=== PATIENT | female | born 1950 | race Caucasian/White ===

== ENCOUNTER → 2017-05-09 | Outpatient (CLI) | payer MEDICARE ==
[2017-05-09 16:34] LABS: ALBUMIN 4.3 GM/DL (3.2-5.2); ALBUMIN/GLOBULIN RATIO 1.26 (1.00-1.93); ALKALINE PHOSPHATASE 74 U/L (45-117); ALT/SGPT 16 U/L (12-78); AST/SGOT 11 U/L (7-37); BILIRUBIN,DIRECT < 0.1 MG/DL (0.0-0.2); BILIRUBIN,TOTAL 0.3 MG/DL (0.2-1.0); TOTAL PROTEIN 7.7 GM/DL (6.4-8.2)
== END ==
LOC: M WUC 11:30
PROVIDERS: ATTEND Internal Medicine Gastroenterology
DX: Z76.89 Persons encountering health services in other specified circumstances (principal); L50.8 Other urticaria; Z12.11 Encounter for screening for malignant neoplasm of colon

== ENCOUNTER → 2018-03-23 | Outpatient (REF) | payer MEDICARE ==
[2018-03-27 15:09] LABS: O+P EXAM Final report (.)
== END ==
LOC: M LAB REF 13:48
DX: R19.7 Diarrhea, unspecified (principal)
CPT/HCPCS: 87177

== ENCOUNTER → 2018-04-16 | Outpatient (CLI) | payer MEDICARE ==
[2018-04-16 18:12] LABS: C REACTIVE PROTEIN QUANTITATIV 1.87 MG/DL (0.00-0.30)
[2018-04-16 18:13] LABS: HEMATOCRIT 43.3 % (36.0-47.0); HEMOGLOBIN 13.7 g/dl (12.0-15.5); MEAN CORPUSCULAR HEMOGLOBIN 29.2 pg (27.0-33.0); MEAN CORPUSCULAR HGB CONC 31.6 g/dl (32.0-36.5); MEAN CORPUSCULAR VOLUME 92.3 fl (80.0-96.0); PLATELET COUNT, AUTOMATED 256 10^3/uL (150-450); RED BLOOD COUNT 4.69 10^6/uL (4.00-5.40); RED CELL DISTRIBUTION WIDTH 13.4 % (11.5-14.5); WHITE BLOOD COUNT 6.5 10^3/uL (4.0-10.0)
== END ==
LOC: M WUC 12:09
DX: K57.90 Diverticulosis of intestine, part unspecified, without perforation or abscess without bleeding (principal); R10.32 Left lower quadrant pain; K58.9 Irritable bowel syndrome, unspecified; Z12.11 Encounter for screening for malignant neoplasm of colon; R11.0 Nausea
CPT/HCPCS: 86140

== ENCOUNTER 2018-05-02 18:35 | Inpatient (IN) | payer MEDICARE ==
[2018-05-02 19:41] LABS: BASO % 0.3 % (0.0-1.0); EOS # 0.1 10^3/uL (0.0-0.50); EOS % 0.5 % (0.0-3.0); HEMOGLOBIN 14.9 g/dl (12.0-15.5); IMMATURE GRANULOCYTE % 0.3 % (0-3.0); LYMPH # 1.4 10^3/uL (1.5-4.5); LYMPH % 11.5 % (24.0-44.0); MEAN CORPUSCULAR HEMOGLOBIN 28.9 pg (27.0-33.0); MEAN CORPUSCULAR HGB CONC 32.4 g/dl (32.0-36.5); MEAN CORPUSCULAR VOLUME 89.3 fl (80.0-96.0); MONO # 0.5 10^3/uL (0.0-0.8); MONO % 4.5 % (0.0-5.0); NEUTROPHILS % 82.9 % (36.0-66.0); PLATELET COUNT, AUTOMATED 246 10^3/uL (150-450); RED BLOOD COUNT 5.15 10^6/uL (4.00-5.40); RED CELL DISTRIBUTION WIDTH 13.5 % (11.5-14.5)
[2018-05-02] MEDS: ONDANSETRON 4MG/2ML VIAL (J2405) IV (19:45)
[2018-05-02] MEDS: NS 1,000 ML IV (19:45)
[2018-05-02 19:57] LABS: ALBUMIN 4.5 GM/DL (3.2-5.2); ALBUMIN/GLOBULIN RATIO 1.25 (1.00-1.93); ALKALINE PHOSPHATASE 75 U/L (45-117); ALT/SGPT 17 U/L (12-78); ANION GAP 13 MEQ/L (8-16); AST/SGOT 19 U/L (7-37); BILIRUBIN,DIRECT 0.1 MG/DL (0.0-0.2); BILIRUBIN,TOTAL 0.5 MG/DL (0.2-1.0); BLOOD UREA NITROGEN 16 MG/DL (7-18); CALCIUM LEVEL 9.4 MG/DL (8.8-10.2); CARBON DIOXIDE LEVEL 25 MEQ/L (21-32); CHLORIDE LEVEL 100 MEQ/L (98-107); CK-MB VALUE MASS < 1.0 NG/ML (<3.6); CPK CREATINE PHOSPHOKINASE 104 U/L (26-192); CREATININE FOR GFR 1.22 MG/DL (0.55-1.30); GLOMERULAR FILTRATION RATE 46.4 (>39); GLUCOSE, FASTING 101 MG/DL (70-100); LIPASE 70 U/L (73-393); MB/CK RELATIVE INDEX 0.96 (< OR =4); POTASSIUM SERUM 4.4 MEQ/L (3.5-5.1); SODIUM LEVEL 138 MEQ/L (136-145); TOTAL PROTEIN 8.1 GM/DL (6.4-8.2); TROPONIN I < 0.02 NG/ML (< 0.10)
[2018-05-02] MEDS: MORPHINE 4 MG/ML 1ML VIAL/SYRINGE (J2270) IV (20:03)
[2018-05-02] MEDS: GASTROGRAFIN SOLUTION 30ML PO ×2 (20:20→20:44)
[2018-05-02] MEDS: MORPHINE 2 MG/ML 1ML SYRINGE (J2270) IV (21:36)
[2018-05-02] MEDS ORDERED: ISOVUE-370 76% 100ML VIAL (Q9967) As Ordered (21:41)
[2018-05-02 22:56] LABS: KETONE, URINE AUTO RFX 2+ mg/dL (NEGATIVE); LEUKOCYTE ESTERASE UR AUTO RFX NEGATIVE (NEGATIVE); MUCUS, URINE RFX SMALL (NEGATIVE); NITRITE, URINE AUTO RFX NEGATIVE (NEGATIVE); RBC, URINE AUTO RFX 4 /HPF (0-3); SPECIFIC GRAVITY UR AUTO RFX 1.046 (1.002-1.035); SQUAM EPITHELIAL CELL UR AURFX 1 /HPF (0-6); WBC, URINE AUTO RFX 1 /HPF (0-3)
[2018-05-02] MEDS: metroNIDAZOLE 500 MG in APPROPRIATE DILUENT 1 EA IV (23:55)
[2018-05-03] MEDS ORDERED: ACETAMINOPHEN TAB 650MG DOSE (2X325MG) PO
[2018-05-03] MEDS: LevoFLOXacin IV 750 MG in APPROPRIATE DILUENT 1 EA IV (00:56)
[2018-05-03] MEDS: NS 1,000 ML IV ×2 (02:00→14:21)
[2018-05-03] MEDS: zolPIDEM TARTRATE 5 MG TAB PO (02:01)
[2018-05-03] MEDS: ENOXAPARIN 40 MG/0.4 ML SYRINGE (J1650) SC (08:56)
[2018-05-03] MEDS: metroNIDAZOLE 500 MG in APPROPRIATE DILUENT 1 EA IV ×2 (08:56→16:38)
[2018-05-03] MEDS: ALLOPURINOL 300 MG TAB PO (08:58)
[2018-05-03] MEDS: LEVOTHYROXINE 88MCG TABLET (0.088 MG) PO (08:59)
[2018-05-03 10:08] LABS: C REACTIVE PROTEIN QUANTITATIV 5.31 MG/DL (0.00-0.30)
[2018-05-03] MEDS: ONDANSETRON 4MG/2ML VIAL (J2405) IV (10:26)
[2018-05-03 11:11] LABS: HEMATOCRIT 39.4 % (36.0-47.0); MEAN CORPUSCULAR HEMOGLOBIN 28.8 pg (27.0-33.0); MEAN CORPUSCULAR HGB CONC 32.2 g/dl (32.0-36.5); MEAN CORPUSCULAR VOLUME 89.3 fl (80.0-96.0); PLATELET COUNT, AUTOMATED 169 10^3/uL (150-450); RED BLOOD COUNT 4.41 10^6/uL (4.00-5.40); RED CELL DISTRIBUTION WIDTH 13.9 % (11.5-14.5); WHITE BLOOD COUNT 7.9 10^3/uL (4.0-10.0)
[2018-05-03 11:15] LABS: HEMOGLOBIN 12.7 g/dl (12.0-15.5)
[2018-05-03 11:40] LABS: ANION GAP 9 MEQ/L (8-16); BLOOD UREA NITROGEN 12 MG/DL (7-18); CALCIUM LEVEL 8.5 MG/DL (8.8-10.2); CARBON DIOXIDE LEVEL 28 MEQ/L (21-32); CHLORIDE LEVEL 102 MEQ/L (98-107); CK-MB VALUE MASS < 1.0 NG/ML (<3.6); CPK CREATINE PHOSPHOKINASE 55 U/L (26-192); CREATININE FOR GFR 0.97 MG/DL (0.55-1.30); GLOMERULAR FILTRATION RATE > 60.0 (>39); GLUCOSE, FASTING 136 MG/DL (70-100); MAGNESIUM LEVEL 2.2 MG/DL (1.8-2.4); MB/CK RELATIVE INDEX 1.82 (< OR =4); POTASSIUM SERUM 3.7 MEQ/L (3.5-5.1); SODIUM LEVEL 139 MEQ/L (136-145); TROPONIN I < 0.02 NG/ML (< 0.10)
[2018-05-03] MEDS: BISOPROLOL FUMARATE 5 MG TAB PO (12:34)
[2018-05-03] MEDS: BENAZEPRIL 20 MG TAB PO (12:34)
[2018-05-03] MEDS: amLODIPine 5 MG TAB PO (12:35)
[2018-05-03] MEDS: KETOROLAC 30 MG/ML VIAL (J1885) IV ×2 (12:44→18:50)
[2018-05-03] MEDS: TEMAZEPAM 7.5 MG CAP PO (21:47)
[2018-05-04] MEDS: metroNIDAZOLE 500 MG in APPROPRIATE DILUENT 1 EA IV ×3 (00:53→17:02)
[2018-05-04] MEDS: KETOROLAC 30 MG/ML VIAL (J1885) IV ×4 (00:53→21:04)
[2018-05-04 06:47] LABS: HEMATOCRIT 34.9 % (36.0-47.0); MEAN CORPUSCULAR HEMOGLOBIN 28.9 pg (27.0-33.0); MEAN CORPUSCULAR HGB CONC 31.5 g/dl (32.0-36.5); MEAN CORPUSCULAR VOLUME 91.6 fl (80.0-96.0); PLATELET COUNT, AUTOMATED 118 10^3/uL (150-450); RED BLOOD COUNT 3.81 10^6/uL (4.00-5.40); RED CELL DISTRIBUTION WIDTH 13.9 % (11.5-14.5); WHITE BLOOD COUNT 4.7 10^3/uL (4.0-10.0)
[2018-05-04 07:12] LABS: ANION GAP 8 MEQ/L (8-16); BLOOD UREA NITROGEN 12 MG/DL (7-18); CARBON DIOXIDE LEVEL 26 MEQ/L (21-32); CHLORIDE LEVEL 107 MEQ/L (98-107); CREATININE FOR GFR 0.96 MG/DL (0.55-1.30); GLOMERULAR FILTRATION RATE > 60.0 (>39); GLUCOSE, FASTING 90 MG/DL (70-100); MAGNESIUM LEVEL 2.3 MG/DL (1.8-2.4); POTASSIUM SERUM 3.5 MEQ/L (3.5-5.1); SODIUM LEVEL 141 MEQ/L (136-145); THYROID STIMULATING HORMONE 0.253 uIU/ML (0.358-3.740)
[2018-05-04 09:43] LABS: FREE T4 1.58 NG/DL (0.76-1.46)
[2018-05-04] MEDS: KCL 20MEQ in NS 1000ML 1,000 ML IV ×2 (10:04→21:03)
[2018-05-04] MEDS: BISOPROLOL FUMARATE 5 MG TAB PO (10:05)
[2018-05-04] MEDS: FOLIC ACID 1 MG TAB PO (10:05)
[2018-05-04] MEDS: POTASSIUM CHLORIDE 10 MEQ SR TABLET PO (10:06)
[2018-05-04] MEDS: LEVOTHYROXINE 88MCG TABLET (0.088 MG) PO (10:07)
[2018-05-04] MEDS: ALLOPURINOL 300 MG TAB PO (10:07)
[2018-05-04] MEDS: BENAZEPRIL 20 MG TAB PO (10:08)
[2018-05-04] MEDS: ENOXAPARIN 40 MG/0.4 ML SYRINGE (J1650) SC (10:09)
[2018-05-04] MEDS: TEMAZEPAM 7.5 MG CAP PO (21:04)
[2018-05-05] MEDS: metroNIDAZOLE 500 MG in APPROPRIATE DILUENT 1 EA IV ×4 (00:08→23:55)
[2018-05-05] MEDS: LevoFLOXacin IV 750 MG in APPROPRIATE DILUENT 1 EA IV (02:05)
[2018-05-05] MEDS: ONDANSETRON 4MG/2ML VIAL (J2405) IV ×2 (06:03→20:43)
[2018-05-05 06:59] LABS: BASO % 0.6 % (0.0-1.0); EOS # 0.1 10^3/uL (0.0-0.50); EOS % 2.2 % (0.0-3.0); HEMATOCRIT 33.1 % (36.0-47.0); HEMOGLOBIN 10.8 g/dl (12.0-15.5); IMMATURE GRANULOCYTE % 0.2 % (0-3.0); LYMPH # 0.9 10^3/uL (1.5-4.5); LYMPH % 16.5 % (24.0-44.0); MEAN CORPUSCULAR HEMOGLOBIN 29.7 pg (27.0-33.0); MEAN CORPUSCULAR HGB CONC 32.6 g/dl (32.0-36.5); MEAN CORPUSCULAR VOLUME 90.9 fl (80.0-96.0); MONO # 0.3 10^3/uL (0.0-0.8); MONO % 5.4 % (0.0-5.0); NEUTROPHILS # 4.1 10^3/uL (1.8-7.7); NEUTROPHILS % 75.1 % (36.0-66.0); PLATELET COUNT, AUTOMATED 116 10^3/uL (150-450); RED BLOOD COUNT 3.64 10^6/uL (4.00-5.40); RED CELL DISTRIBUTION WIDTH 13.9 % (11.5-14.5); WHITE BLOOD COUNT 5.4 10^3/uL (4.0-10.0)
[2018-05-05 07:20] LABS: ANION GAP 7 MEQ/L (8-16); BLOOD UREA NITROGEN 8 MG/DL (7-18); C REACTIVE PROTEIN QUANTITATIV 9.78 MG/DL (0.00-0.30); CALCIUM LEVEL 7.9 MG/DL (8.8-10.2); CARBON DIOXIDE LEVEL 25 MEQ/L (21-32); CHLORIDE LEVEL 110 MEQ/L (98-107); CREATININE FOR GFR 0.74 MG/DL (0.55-1.30); GLOMERULAR FILTRATION RATE > 60.0 (>39); GLUCOSE, FASTING 96 MG/DL (70-100); MAGNESIUM LEVEL 1.9 MG/DL (1.8-2.4); POTASSIUM SERUM 3.9 MEQ/L (3.5-5.1); SODIUM LEVEL 142 MEQ/L (136-145)
[2018-05-05] MEDS: BISOPROLOL FUMARATE 5 MG TAB PO (09:13)
[2018-05-05] MEDS: LEVOTHYROXINE 88MCG TABLET (0.088 MG) PO (09:14)
[2018-05-05] MEDS: BENAZEPRIL 20 MG TAB PO (09:14)
[2018-05-05] MEDS: POTASSIUM CHLORIDE 10 MEQ SR TABLET PO (09:14)
[2018-05-05] MEDS: FOLIC ACID 1 MG TAB PO (09:14)
[2018-05-05] MEDS: ALLOPURINOL 300 MG TAB PO (09:15)
[2018-05-05] MEDS: ENOXAPARIN 40 MG/0.4 ML SYRINGE (J1650) SC (09:15)
[2018-05-05] MEDS: KCL 20MEQ in NS 1000ML 1,000 ML IV ×2 (13:17→22:04)
[2018-05-05] MEDS: zolPIDEM TARTRATE 5 MG TAB PO (22:03)
[2018-05-06 06:57] LABS: HEMATOCRIT 35.2 % (36.0-47.0); HEMOGLOBIN 11.1 g/dl (12.0-15.5); MEAN CORPUSCULAR HEMOGLOBIN 28.9 pg (27.0-33.0); MEAN CORPUSCULAR HGB CONC 31.5 g/dl (32.0-36.5); MEAN CORPUSCULAR VOLUME 91.7 fl (80.0-96.0); PLATELET COUNT, AUTOMATED 124 10^3/uL (150-450); RED BLOOD COUNT 3.84 10^6/uL (4.00-5.40); WHITE BLOOD COUNT 3.5 10^3/uL (4.0-10.0)
[2018-05-06 07:20] LABS: ANION GAP 6 MEQ/L (8-16); BLOOD UREA NITROGEN 4 MG/DL (7-18); C REACTIVE PROTEIN QUANTITATIV 8.04 MG/DL (0.00-0.30); CALCIUM LEVEL 8.4 MG/DL (8.8-10.2); CARBON DIOXIDE LEVEL 26 MEQ/L (21-32); CHLORIDE LEVEL 111 MEQ/L (98-107); CREATININE FOR GFR 0.77 MG/DL (0.55-1.30); GLOMERULAR FILTRATION RATE > 60.0 (>39); GLUCOSE, FASTING 87 MG/DL (70-100); MAGNESIUM LEVEL 1.9 MG/DL (1.8-2.4); POTASSIUM SERUM 4.3 MEQ/L (3.5-5.1); SODIUM LEVEL 143 MEQ/L (136-145)
[2018-05-06] MEDS: metroNIDAZOLE 500 MG in APPROPRIATE DILUENT 1 EA IV ×3 (08:44→23:44)
[2018-05-06] MEDS: KCL 20MEQ in NS 1000ML 1,000 ML IV ×2 (08:45→22:01)
[2018-05-06] MEDS: ONDANSETRON 4MG/2ML VIAL (J2405) IV ×4 (08:45→22:01)
[2018-05-06] MEDS: FOLIC ACID 1 MG TAB PO (08:46)
[2018-05-06] MEDS: LEVOTHYROXINE 88MCG TABLET (0.088 MG) PO (08:46)
[2018-05-06] MEDS: ALLOPURINOL 300 MG TAB PO (08:46)
[2018-05-06] MEDS: POTASSIUM CHLORIDE 10 MEQ SR TABLET PO (08:46)
[2018-05-06] MEDS: BENAZEPRIL 20 MG TAB PO (08:47)
[2018-05-06] MEDS: BISOPROLOL FUMARATE 5 MG TAB PO (08:48)
[2018-05-06] MEDS: ENOXAPARIN 40 MG/0.4 ML SYRINGE (J1650) SC (08:48)
[2018-05-06] MEDS: zolPIDEM TARTRATE 5 MG TAB PO (22:01)
[2018-05-07] MEDS: LevoFLOXacin IV 750 MG in APPROPRIATE DILUENT 1 EA IV (01:49)
[2018-05-07] MEDS: ONDANSETRON 4MG/2ML VIAL (J2405) IV ×4 (01:49→14:42)
[2018-05-07 07:05] LABS: HEMATOCRIT 37.4 % (36.0-47.0); MEAN CORPUSCULAR HEMOGLOBIN 29.3 pg (27.0-33.0); MEAN CORPUSCULAR HGB CONC 32.1 g/dl (32.0-36.5); MEAN CORPUSCULAR VOLUME 91.2 fl (80.0-96.0); PLATELET COUNT, AUTOMATED 144 10^3/uL (150-450); RED CELL DISTRIBUTION WIDTH 13.7 % (11.5-14.5); WHITE BLOOD COUNT 3.7 10^3/uL (4.0-10.0)
[2018-05-07 07:27] LABS: ANION GAP 9 MEQ/L (8-16); BLOOD UREA NITROGEN 4 MG/DL (7-18); CALCIUM LEVEL 8.7 MG/DL (8.8-10.2); CARBON DIOXIDE LEVEL 26 MEQ/L (21-32); CHLORIDE LEVEL 105 MEQ/L (98-107); CREATININE FOR GFR 0.83 MG/DL (0.55-1.30); GLOMERULAR FILTRATION RATE > 60.0 (>39); GLUCOSE, FASTING 81 MG/DL (70-100); MAGNESIUM LEVEL 1.9 MG/DL (1.8-2.4); POTASSIUM SERUM 4.5 MEQ/L (3.5-5.1); SODIUM LEVEL 140 MEQ/L (136-145)
[2018-05-07] MEDS: BISOPROLOL FUMARATE 5 MG TAB PO (08:48)
[2018-05-07] MEDS: BENAZEPRIL 20 MG TAB PO (08:49)
[2018-05-07] MEDS: POTASSIUM CHLORIDE 10 MEQ SR TABLET PO (08:49)
[2018-05-07] MEDS: FOLIC ACID 1 MG TAB PO (08:49)
[2018-05-07] MEDS: ALLOPURINOL 300 MG TAB PO (08:49)
[2018-05-07] MEDS: metroNIDAZOLE 500 MG in APPROPRIATE DILUENT 1 EA IV ×3 (08:50→23:49)
[2018-05-07] MEDS: LEVOTHYROXINE 88MCG TABLET (0.088 MG) PO (08:50)
[2018-05-07] MEDS: ENOXAPARIN 40 MG/0.4 ML SYRINGE (J1650) SC (08:50)
[2018-05-07] MEDS: KCL 20MEQ in NS 1000ML 1,000 ML IV ×2 (10:10→23:48)
[2018-05-07] MEDS: METOCLOPRAMIDE 10 MG TAB PO ×2 (18:38→23:48)
[2018-05-07] MEDS: MIRALAX *UNIT DOSE* 17GM PACKET PO ×2 (18:38→20:06)
[2018-05-07] MEDS: FLEET ENEMA PR (20:06)
[2018-05-07] MEDS: zolPIDEM TARTRATE 5 MG TAB PO (23:48)
[2018-05-08] MEDS: METOCLOPRAMIDE 10 MG TAB PO ×3 (06:02→17:42)
[2018-05-08] MEDS: FLEET ENEMA PR (06:03)
[2018-05-08 06:32] LABS: HEMATOCRIT 36.6 % (36.0-47.0); HEMOGLOBIN 11.8 g/dl (12.0-15.5); MEAN CORPUSCULAR HGB CONC 32.2 g/dl (32.0-36.5); MEAN CORPUSCULAR VOLUME 89.9 fl (80.0-96.0); PLATELET COUNT, AUTOMATED 166 10^3/uL (150-450); RED BLOOD COUNT 4.07 10^6/uL (4.00-5.40); RED CELL DISTRIBUTION WIDTH 13.6 % (11.5-14.5); WHITE BLOOD COUNT 3.8 10^3/uL (4.0-10.0)
[2018-05-08 06:51] LABS: ANION GAP 10 MEQ/L (8-16); BLOOD UREA NITROGEN 7 MG/DL (7-18); C REACTIVE PROTEIN QUANTITATIV 3.08 MG/DL (0.00-0.30); CALCIUM LEVEL 8.4 MG/DL (8.8-10.2); CARBON DIOXIDE LEVEL 23 MEQ/L (21-32); CHLORIDE LEVEL 106 MEQ/L (98-107); CREATININE FOR GFR 0.83 MG/DL (0.55-1.30); GLOMERULAR FILTRATION RATE > 60.0 (>39); GLUCOSE, FASTING 75 MG/DL (70-100); MAGNESIUM LEVEL 1.8 MG/DL (1.8-2.4); POTASSIUM SERUM 4.5 MEQ/L (3.5-5.1); SODIUM LEVEL 139 MEQ/L (136-145)
[2018-05-08] MEDS: ENOXAPARIN 40 MG/0.4 ML SYRINGE (J1650) SC (08:13)
[2018-05-08] MEDS: metroNIDAZOLE 500 MG in APPROPRIATE DILUENT 1 EA IV ×2 (08:13→16:00)
[2018-05-08] MEDS: FOLIC ACID 1 MG TAB PO (09:27)
[2018-05-08] MEDS: LEVOTHYROXINE 88MCG TABLET (0.088 MG) PO (09:28)
[2018-05-08] MEDS: BENAZEPRIL 20 MG TAB PO (09:29)
[2018-05-08] MEDS: BISOPROLOL FUMARATE 5 MG TAB PO (09:29)
[2018-05-08] MEDS: POTASSIUM CHLORIDE 10 MEQ SR TABLET PO (09:30)
[2018-05-08] MEDS: ALLOPURINOL 300 MG TAB PO (09:31)
[2018-05-08] MEDS ORDERED: PILL CRUSHER/CUTTER 1 EACH XX (09:45)
[2018-05-08] MEDS: NS 1,000 ML IV ×2 (12:03→21:51)
[2018-05-08] MEDS ORDERED: LIDOCAINE 2% INJ 100 MG/5 ML SDV (FOR ANES.) As Ordered (14:42)
[2018-05-08] MEDS ORDERED: PROPOFOL 200 MG/20 ML VIAL As Ordered (14:42)
[2018-05-08] MEDS: zolPIDEM TARTRATE 5 MG TAB PO (21:50)
[2018-05-09] MEDS: metroNIDAZOLE 500 MG in APPROPRIATE DILUENT 1 EA IV ×3 (00:43→15:32)
[2018-05-09] MEDS: METOCLOPRAMIDE 10 MG TAB PO ×4 (00:43→17:59)
[2018-05-09] MEDS: LevoFLOXacin IV 750 MG in APPROPRIATE DILUENT 1 EA IV (02:49)
[2018-05-09 06:33] LABS: HEMATOCRIT 36.2 % (36.0-47.0); HEMOGLOBIN 11.7 g/dl (12.0-15.5); MEAN CORPUSCULAR HGB CONC 32.3 g/dl (32.0-36.5); MEAN CORPUSCULAR VOLUME 89.8 fl (80.0-96.0); PLATELET COUNT, AUTOMATED 163 10^3/uL (150-450); RED BLOOD COUNT 4.03 10^6/uL (4.00-5.40); RED CELL DISTRIBUTION WIDTH 13.6 % (11.5-14.5); WHITE BLOOD COUNT 3.3 10^3/uL (4.0-10.0)
[2018-05-09 06:50] LABS: ANION GAP 15 MEQ/L (8-16); BLOOD UREA NITROGEN 7 MG/DL (7-18); C REACTIVE PROTEIN QUANTITATIV 2.19 MG/DL (0.00-0.30); CALCIUM LEVEL 8.2 MG/DL (8.8-10.2); CARBON DIOXIDE LEVEL 19 MEQ/L (21-32); CHLORIDE LEVEL 107 MEQ/L (98-107); GLOMERULAR FILTRATION RATE > 60.0 (>39); GLUCOSE, FASTING 60 MG/DL (70-100); MAGNESIUM LEVEL 1.8 MG/DL (1.8-2.4); POTASSIUM SERUM 3.9 MEQ/L (3.5-5.1); SODIUM LEVEL 141 MEQ/L (136-145)
[2018-05-09] MEDS: LEVOTHYROXINE 88MCG TABLET (0.088 MG) PO (08:27)
[2018-05-09] MEDS: FOLIC ACID 1 MG TAB PO (08:27)
[2018-05-09] MEDS: BISOPROLOL FUMARATE 5 MG TAB PO (08:27)
[2018-05-09] MEDS: BENAZEPRIL 20 MG TAB PO (08:27)
[2018-05-09] MEDS: ENOXAPARIN 40 MG/0.4 ML SYRINGE (J1650) SC (08:28)
[2018-05-09] MEDS: ALLOPURINOL 300 MG TAB PO (08:28)
[2018-05-09] MEDS: POTASSIUM CHLORIDE 10 MEQ SR TABLET PO (08:28)
[2018-05-09] MEDS: zolPIDEM TARTRATE 5 MG TAB PO (22:04)
[2018-05-10] MEDS: metroNIDAZOLE 500 MG in APPROPRIATE DILUENT 1 EA IV ×4 (01:01→23:58)
[2018-05-10] MEDS: METOCLOPRAMIDE 10 MG TAB PO ×5 (06:00→23:57)
[2018-05-10 06:04] LABS: HEMATOCRIT 35.3 % (36.0-47.0); HEMOGLOBIN 11.5 g/dl (12.0-15.5); MEAN CORPUSCULAR HEMOGLOBIN 28.8 pg (27.0-33.0); MEAN CORPUSCULAR HGB CONC 32.6 g/dl (32.0-36.5); MEAN CORPUSCULAR VOLUME 88.3 fl (80.0-96.0); PLATELET COUNT, AUTOMATED 164 10^3/uL (150-450); RED CELL DISTRIBUTION WIDTH 13.7 % (11.5-14.5)
[2018-05-10 06:32] LABS: ANION GAP 11 MEQ/L (8-16); BLOOD UREA NITROGEN 8 MG/DL (7-18); CALCIUM LEVEL 8.5 MG/DL (8.8-10.2); CARBON DIOXIDE LEVEL 21 MEQ/L (21-32); CHLORIDE LEVEL 108 MEQ/L (98-107); CREATININE FOR GFR 0.78 MG/DL (0.55-1.30); GLOMERULAR FILTRATION RATE > 60.0 (>39); GLUCOSE, FASTING 89 MG/DL (70-100); MAGNESIUM LEVEL 1.5 MG/DL (1.8-2.4); POTASSIUM SERUM 4.1 MEQ/L (3.5-5.1); SODIUM LEVEL 140 MEQ/L (136-145)
[2018-05-10] MEDS: BISOPROLOL FUMARATE 5 MG TAB PO (08:11)
[2018-05-10] MEDS: MAG SULF 1GM/100ML (MAG RUN) 1 GM in APPROPRIATE DILUENT 1 EA IV (08:11)
[2018-05-10] MEDS: POTASSIUM CHLORIDE 10 MEQ SR TABLET PO (08:11)
[2018-05-10] MEDS: BENAZEPRIL 20 MG TAB PO (08:12)
[2018-05-10] MEDS: ENOXAPARIN 40 MG/0.4 ML SYRINGE (J1650) SC (08:12)
[2018-05-10] MEDS: LEVOTHYROXINE 88MCG TABLET (0.088 MG) PO (08:12)
[2018-05-10] MEDS: ALLOPURINOL 300 MG TAB PO (08:12)
[2018-05-10] MEDS: zolPIDEM TARTRATE 5 MG TAB PO (21:33)
[2018-05-11] MEDS: METOCLOPRAMIDE 10 MG TAB PO ×2 (05:10→12:17)
[2018-05-11 08:12] LABS: HEMATOCRIT 38.6 % (36.0-47.0); HEMOGLOBIN 12.6 g/dl (12.0-15.5); MEAN CORPUSCULAR HEMOGLOBIN 29.3 pg (27.0-33.0); MEAN CORPUSCULAR HGB CONC 32.6 g/dl (32.0-36.5); MEAN CORPUSCULAR VOLUME 89.8 fl (80.0-96.0); PLATELET COUNT, AUTOMATED 164 10^3/uL (150-450); RED CELL DISTRIBUTION WIDTH 14.2 % (11.5-14.5); WHITE BLOOD COUNT 3.8 10^3/uL (4.0-10.0)
[2018-05-11] MEDS: metroNIDAZOLE 500 MG in APPROPRIATE DILUENT 1 EA IV (08:13)
[2018-05-11] MEDS: ENOXAPARIN 40 MG/0.4 ML SYRINGE (J1650) SC (08:14)
[2018-05-11] MEDS: ALLOPURINOL 300 MG TAB PO (08:14)
[2018-05-11] MEDS: FOLIC ACID 1 MG TAB PO (08:14)
[2018-05-11] MEDS: BISOPROLOL FUMARATE 5 MG TAB PO (08:15)
[2018-05-11] MEDS: LEVOTHYROXINE 88MCG TABLET (0.088 MG) PO (08:15)
[2018-05-11] MEDS: POTASSIUM CHLORIDE 10 MEQ SR TABLET PO (08:16)
[2018-05-11] MEDS: BENAZEPRIL 20 MG TAB PO (08:16)
[2018-05-11 08:34] LABS: ANION GAP 9 MEQ/L (8-16); BLOOD UREA NITROGEN 10 MG/DL (7-18); CALCIUM LEVEL 8.7 MG/DL (8.8-10.2); CARBON DIOXIDE LEVEL 25 MEQ/L (21-32); CHLORIDE LEVEL 109 MEQ/L (98-107); CREATININE FOR GFR 0.81 MG/DL (0.55-1.30); GLOMERULAR FILTRATION RATE > 60.0 (>39); GLUCOSE, FASTING 107 MG/DL (70-100); MAGNESIUM LEVEL 1.8 MG/DL (1.8-2.4); POTASSIUM SERUM 4.2 MEQ/L (3.5-5.1); SODIUM LEVEL 143 MEQ/L (136-145)
== END 2018-05-11 13:25 | disposition home or self-care (01) | DRG 392 ==
LOC: M ED INP 23:57 → M MS5PR 05-03 01:35 → M ED 18:35
PROC: 0DJD8ZZ Inspection of Lower Intestinal Tract, Via Natural or Artificial Opening Endoscopic (ICD-10-PCS; principal; 2018-05-08 08:30)
DX: K57.32 Diverticulitis of large intestine without perforation or abscess without bleeding (principal); K56.600 Partial intestinal obstruction, unspecified as to cause; I10 Essential (primary) hypertension; E03.9 Hypothyroidism, unspecified; M10.9 Gout, unspecified; Z90.49 Acquired absence of other specified parts of digestive tract; Z98.51 Tubal ligation status; G47.00 Insomnia, unspecified; Z88.0 Allergy status to penicillin

== ENCOUNTER 2018-08-07 11:04 | Day surgery (SDC) | payer MEDICARE ==
[~2018-08-07] VITALS: Ht 170.2 cm; Wt 81.2 kg
[~2018-08-07 11:04] MED LIST: AMLO5CAP52 PO; BISO5TAB2 PO; BISO5TAB5 PO; FOLI1TAB11 PO; LEVO88TA3 PO; METH2.5T48 PO; NS 1,000 ML IV ONE; ZOFR4TAB16 PO; ZYLO300T6 PO
[2018-08-07] MEDS ORDERED: PROPOFOL 500 MG/50 ML VIAL As Ordered ONE (12:09)
[2018-08-07] MEDS ORDERED: LIDOCAINE 2% INJ 100 MG/5 ML SDV (FOR ANES.) As Ordered ONE (12:09)
[2018-08-07 13:20] VITALS: BP 119/73
--- NOTE | 2018-08-07 13:44 | ROOR ---
Patient Name: Nicole Waddell Procedure Date: 08/07/2018 11:59 AM Date of : 1950 Age: 68 Room: [facility] Gender: Female Note Status: Finalized Procedure: Colonoscopy Indications: Screening for colorectal malignant neoplasm Providers: Logan Holly MD Referring MD: JACKY SRIVASTAVA Requesting Provider: Medicines: Monitored Anesthesia Care Complications: No immediate complications. Procedure: Pre-Anesthesia Assessment: - Prior to the procedure, a History and Physical was performed, and patient medications and allergies were reviewed. The patient is competent. The risks and benefits of the procedure and the sedation options and risks were discussed with the patient. All questions were answered and informed consent was obtained. Patient identification and proposed procedure were verified by the physician, the nurse and the anesthesiologist in the procedure room. Mental Status Examination: alert and oriented. CV Examination: regular rate and rhythm. Prophylactic Antibiotics: The patient does not require prophylactic antibiotics. Prior Anticoagulants: The patient has taken no previous anticoagulant or antiplatelet agents. ASA Grade Assessment: II - A patient with mild systemic disease. After reviewing the risks and benefits, the patient was deemed in satisfactory condition to undergo the procedure. The anesthesia plan was to use monitored anesthesia care (MAC). Immediately prior to administration of medications, the patient was re-assessed for adequacy to receive sedatives. The heart rate, respiratory rate, oxygen saturations, blood pressure, adequacy of pulmonary ventilation, and response to care were monitored throughout the procedure. The physical status of the patient was re-assessed after the procedure. The Colonoscope was introduced through the anus and advanced to the sigmoid colon. The colonoscopy was performed with difficulty due to restricted mobility of the colon and a tortuous colon. The patient tolerated the procedure well. The quality of the bowel preparation was good. Findings: The perianal and digital rectal examinations were normal. Multiple large-mouthed diverticula were found in the sigmoid colon. The scope could only be advanced to 35 cm due to multiple diverticuli and marked angulation of the colon at this level. Impression: - Diverticulosis in the sigmoid colon. - No specimens collected. Recommendation: - Discharge patient to home. - Resume previous diet. - Continue present medications. - Return to endoscopist PRN. Logan Holly MD Logan Holly MD 08/07/2018 1:44:00 PM This report has been signed electronically. Number of Addenda: 0 Note Initiated On: 08/07/2018 11:59 AM Estimated Blood Loss: Estimated blood loss: none.
== END 2018-08-07 13:35 | disposition home or self-care (01) ==
LOC: M OPP 11:04
PROVIDERS: ATTEND Surgery
DX: Z12.11 Encounter for screening for malignant neoplasm of colon (principal); K57.30 Diverticulosis of large intestine without perforation or abscess without bleeding; Z79.899 Other long term (current) drug therapy; Z88.0 Allergy status to penicillin; Z87.891 Personal history of nicotine dependence; Z90.49 Acquired absence of other specified parts of digestive tract

== ENCOUNTER → 2020-06-15 | Outpatient (CLI) | payer SELFPAY ==
[~2020-06-15] MED LIST changes: +AMLO5CAP45 PO; -AMLO5CAP52 PO; +BISO5TAB14 PO; -BISO5TAB5 PO; -NS 1,000 ML IV ONE
== END ==
LOC: M LABSMTC 11:27
PROVIDERS: ATTEND Pediatrics
DX: Z20.828 Contact with and (suspected) exposure to other viral communicable diseases (principal)

== ENCOUNTER → 2020-07-21 | Outpatient (CLI) | payer MEDICARE ==
[~2020-07-21] MED LIST changes: +E-Z-GAS II EFFERVESCENT PACKET (SODIUM BICARB./CITRIC ACID/SIMETHICONE) As Ordered ONE; +E-Z-HD 98% w/w 340GM SUSP BTL As Ordered ONE; +E-Z-PAQUE 96% w/w SUSP 176GM BTL As Ordered ONE
--- NOTE | 2020-07-21 17:12 | REP ---
INDICATION: TYPE 2 DIABETES MELLITUS WITH OTHER SPECIFIED COMPLICATION. COMPARISON: None TECHNIQUE: This procedure was performed by Laina Jung [facility], under the direct supervision of Dr. Shay. Images were reviewed with Dr. Shay prior to dictation. Liquid barium and gas producing crystals were given in the erect position, as well as liquid barium in the prone oblique position in order to perform a double contrast upper GI examination. Additionally liquid barium was given at the end of the examination in order to perform a small-bowel follow-through. FINDINGS: The scout executive film shows no organomegaly or pathological masses. The intestinal gas pattern is unremarkable. There is degenerative disc disease of the lumbar spine. The oral and pharyngeal stages of deglutition were unremarkable. Esophageal transport is prompt and efficient and there is no evidence of esophagitis, stricture, or mucosal ring. There is no evidence of a hiatal hernia. Gastroesophageal reflux was visualized to the level of the abad. The stomach nicole are normally outlined. The rugal folds are smooth and regular. There is no gastritis, neoplasm, or ulcerative disease. The duodenal nicole are normally outlined. The mucosal folds are smooth and regular. There is no duodenitis, peptic ulcer disease or neoplasm. The visualized portion of the proximal small bowel appears normal in course and caliber. The barium column was followed through the small bowel to the level of the terminal ileum. Small bowel transit time is approximately 170 minutes. During fluoroscopy gentle palpation shows all loops are freely movable and pliable. There is no fixed angulated loops. The small bowel mucosal pattern is normal in course and caliber. There is no transition to suggest a partial small bowel obstruction. Spot filming of the terminal ileum shows it to be unremarkable. IMPRESSION: Gastroesophageal reflux to the level of the abad. 0.6 minutes of fluoroscopy time was utilized for this procedure. Some fluoroscopic images are performed with last image hold technology. These images require no additional radiation. <Electronically signed by Laina Jung > 07/21/20 1651 <Electronically signed by Nikita Shay > 07/21/20 1709
== END ==
LOC: M RAD 07:51
PROVIDERS: ATTEND Physician Assistant
DX: K21.9 Gastro-esophageal reflux disease without esophagitis (principal); R10.13 Epigastric pain

== ENCOUNTER → 2020-08-15 | Outpatient (CLI) | payer MEDICARE ==
[~2020-08-15] MED LIST changes: -E-Z-GAS II EFFERVESCENT PACKET (SODIUM BICARB./CITRIC ACID/SIMETHICONE) As Ordered ONE; -E-Z-HD 98% w/w 340GM SUSP BTL As Ordered ONE; -E-Z-PAQUE 96% w/w SUSP 176GM BTL As Ordered ONE
== END ==
LOC: M LABSMTC 11:17
PROVIDERS: ATTEND Anesthesiology
DX: Z01.812 Encounter for preprocedural laboratory examination (principal); Z20.822 Contact with and (suspected) exposure to COVID-19

== ENCOUNTER 2020-08-20 10:46 | Day surgery (SDC) | payer MEDICARE ==
[~2020-08-20] VITALS: Ht 170.2 cm; Wt 88.5 kg
[~2020-08-20 10:46] MED LIST changes: +FAMO40TA3 PO; +NS 1,000 ML IV ONE; +PANT40TA29 PO; +ZOLP5TAB PO
[2020-08-20] MEDS ORDERED: LIDOCAINE 2% 100MG/5ML SDV (FOR ANES.) As Ordered ONE (12:40)
[2020-08-20] MEDS ORDERED: propofoL 200 MG/20 ML VIAL As Ordered ONE ×2 (12:40→12:43)
--- NOTE | 2020-08-20 13:03 | ROOR ---
Patient Name: Nicole Waddell Procedure Date: 08/20/2020 12:33 PM Date of : 1950 Age: 70 Room: [facility] Gender: Female Note Status: Finalized Procedure: Upper GI endoscopy Indications: Suspected esophageal reflux Providers: Logan Holly MD Referring MD: JACKY SRIVASTAVA Requesting Provider: Medicines: Monitored Anesthesia Care Complications: No immediate complications. Procedure: Pre-Anesthesia Assessment: - Prior to the procedure, a History and Physical was performed, and patient medications and allergies were reviewed. The patient is competent. The risks and benefits of the procedure and the sedation options and risks were discussed with the patient. All questions were answered and informed consent was obtained. Patient identification and proposed procedure were verified by the physician, the nurse and the anesthesiologist in the procedure room. Mental Status Examination: alert and oriented. Airway Examination: normal oropharyngeal airway and neck mobility. Prophylactic Antibiotics: The patient does not require prophylactic antibiotics. Prior Anticoagulants: The patient has taken no previous anticoagulant or antiplatelet agents. ASA Grade Assessment: III - A patient with severe systemic disease. After reviewing the risks and benefits, the patient was deemed in satisfactory condition to undergo the procedure. The anesthesia plan was to use monitored anesthesia care (MAC). Immediately prior to administration of medications, the patient was re-assessed for adequacy to receive sedatives. The heart rate, respiratory rate, oxygen saturations, blood pressure, adequacy of pulmonary ventilation, and response to care were monitored throughout the procedure. The physical status of the patient was re-assessed after the procedure. The Endoscope was introduced through the mouth, and advanced to the second part of duodenum. The upper GI endoscopy was accomplished without difficulty. The patient tolerated the procedure well. Findings: The examined esophagus was normal. Patchy mildly erythematous mucosa without bleeding was found in the gastric fundus and on the greater curvature of the gastric body. Biopsies were taken with a cold forceps for histology. Estimated blood loss was minimal. The first portion of the duodenum and second portion of the duodenum were normal. Impression: - Normal esophagus. - Erythematous mucosa in the gastric fundus and greater curvature of the gastric body. Biopsied. - Normal first portion of the duodenum and second portion of the duodenum. Recommendation: - Discharge patient to home. - Resume previous diet. - Continue present medications. - Return to endoscopist in 2 weeks. Procedure Code(s): --- Professional --- 58892, Esophagogastroduodenoscopy, flexible, transoral; with biopsy, single or multiple Diagnosis Code(s): --- Professional --- K31.89, Other diseases of stomach and duodenum CPT copyright 2019 [employer]. All rights reserved. The codes documented in this report are preliminary and upon track grinder operator review may be revised to meet current compliance requirements. Logan Holly MD Logan Holly MD 08/20/2020 1:03:05 PM Electronically signed by Logan Holly MD Number of Addenda: 0 Note Initiated On: 08/20/2020 12:33 PM Estimated Blood Loss: Estimated blood loss was minimal.
[2020-08-20 13:18] VITALS: BP 136/82
== END 2020-08-20 13:19 | disposition home or self-care (01) ==
LOC: M OPP 10:46
PROVIDERS: ATTEND Surgery
DX: K21.9 Gastro-esophageal reflux disease without esophagitis (principal); K31.89 Other diseases of stomach and duodenum; K29.00 Acute gastritis without bleeding; I10 Essential (primary) hypertension; M10.9 Gout, unspecified; E03.9 Hypothyroidism, unspecified; K59.00 Constipation, unspecified; G62.9 Polyneuropathy, unspecified; Z92.21 Personal history of antineoplastic chemotherapy; Z87.891 Personal history of nicotine dependence; Z88.0 Allergy status to penicillin; Z88.1 Allergy status to other antibiotic agents; Z79.899 Other long term (current) drug therapy

== ENCOUNTER → 2021-03-16 | Outpatient (CLI) | payer MEDICARE ==
[~2021-03-16] MED LIST changes: -NS 1,000 ML IV ONE
--- NOTE | 2021-03-16 13:57 | REP ---
INDICATION: BYPERTENSION, OTHER FATIGUE, CARDIAC MURMUR COMPARISON: None. TECHNIQUE: PA and lateral. FINDINGS: The mediastinum and cardiac silhouette are stable. The lung barr demonstrate chronic appearing changes. No focal consolidation or effusion.. The skeletal structures are intact and normal. IMPRESSION: Chronic appearing changes. No obvious focal consolidation or effusion. <Electronically signed by Maulik Spivey > 03/16/21 [id number]
== END ==
LOC: M WUC 13:46
PROVIDERS: ATTEND Physician Assistant
DX: I10 Essential (primary) hypertension (principal); R53.83 Other fatigue; R01.1 Cardiac murmur, unspecified

== ENCOUNTER → 2021-08-04 | Outpatient (CLI) | payer MEDICARE ==
[~2021-08-04] MED LIST changes: -AMLO5CAP45 PO; +AMLO5CAP53 PO; +BISO1TAB18 PO; -BISO5TAB2 PO
[2021-08-04 16:06] LABS: APPEARANCE, URINE CLEAR (CLEAR); BACTERIA, URINE AUTO NEGATIVE (NEGATIVE); BILIRUBIN, URINE AUTO 1+ (NEGATIVE); BLOOD, URINE BLOOD NEGATIVE (NEGATIVE); COLOR, URINE YELLOW (YELLOW); GLUCOSE, URINE (UA) AUTO NEGATIVE (NEGATIVE); KETONE, URINE AUTO TRACE mg/dL (NEGATIVE); LEUKOCYTE ESTERASE, URINE AUTO TRACE (NEGATIVE); MUCUS, URINE SMALL (NEGATIVE); NITRITE, URINE AUTO NEGATIVE (NEGATIVE); PROTEIN, URINE AUTO 1+ mg/dL (NEGATIVE); RBC, URINE AUTO 7 /HPF (0-3); SPECIFIC GRAVITY URINE AUTO 1.031 (1.002-1.035); SQUAMOUS EPITHELIAL CELL UR AU 1 /HPF (0-6); WBC, URINE AUTO 7 /HPF (0-3)
[2021-08-04 16:22] LABS: BASO % 0.6 % (0.0-1.0); EOS # 0.1 10^3/uL (0.0-0.5); HEMATOCRIT 44.4 % (36.0-47.0); HEMOGLOBIN 14.1 g/dl (12.0-15.5); LYMPH # 2.1 10^3/uL (1.5-5.0); LYMPH % 32.3 % (24.0-44.0); MEAN CORPUSCULAR HEMOGLOBIN 28.3 pg (27.0-33.0); MEAN CORPUSCULAR HGB CONC 31.8 g/dl (32.0-36.5); MEAN CORPUSCULAR VOLUME 89.2 fl (80.0-96.0); MONO # 0.5 10^3/uL (0.0-0.8); MONO % 6.8 % (2.0-8.0); NEUTROPHILS # 3.9 10^3/uL (1.5-8.5); PLATELET COUNT, AUTOMATED 200 10^3/uL (150-450); RED BLOOD COUNT 4.98 10^6/uL (4.00-5.40); WHITE BLOOD COUNT 6.6 10^3/uL (4.0-10.0)
[2021-08-04 17:12] LABS: ALBUMIN 4.1 GM/DL (3.2-5.2); BILIRUBIN,TOTAL 0.4 MG/DL (0.2-1.0); CALCIUM LEVEL 9.2 MG/DL (8.8-10.2); CHOLESTEROL RISK RATIO 2.843 (<5); CREATININE FOR GFR 1.45 MG/DL (0.55-1.30); GLOMERULAR FILTRATION RATE 37.7 (>39); POTASSIUM SERUM 4.2 MEQ/L (3.5-5.1); THYROID STIMULATING HORMONE 1.27 uIU/ML (0.358-3.740); TOTAL PROTEIN 7.3 GM/DL (6.4-8.2); URIC ACID 4.6 MG/DL (2.6-6.0)
== END ==
LOC: M WUC 13:17
PROVIDERS: ATTEND Physician Assistant
DX: E03.9 Hypothyroidism, unspecified (principal); I10 Essential (primary) hypertension; M10.9 Gout, unspecified

== ENCOUNTER → 2021-08-11 | Outpatient (CLI) | payer MEDICARE | LOC: M WHC 15:17 | PROVIDERS: ATTEND Obstetrics & Gynecology | DX: Z12.31 Encounter for screening mammogram for malignant neoplasm of breast (principal); Z78.0 Asymptomatic menopausal state; Z92.0 Personal history of contraception ==

== ENCOUNTER → 2021-09-14 | Outpatient (CLI) | payer MEDICARE | LOC: M RAD 10:48 | PROVIDERS: ATTEND Orthopaedic Surgery | DX: M99.52 Intervertebral disc stenosis of neural canal of thoracic region (principal); M48.061 Spinal stenosis, lumbar region without neurogenic claudication; M99.53 Intervertebral disc stenosis of neural canal of lumbar region; M54.50 Low back pain, unspecified ==

== ENCOUNTER 2022-04-12 11:11 | Inpatient (IN) | payer MEDICARE ==
[~2022-04-12] VITALS: Ht 170.2 cm; Wt 90.5 kg
[2022-04-12 16:00] LABS: BASO % 0.5 % (0.0-1.0); EOS # 0.1 10^3/uL (0.0-0.5); EOS % 0.9 % (0.0-3.0); HEMATOCRIT 45.6 % (36.0-47.0); HEMOGLOBIN 14.1 g/dl (12.0-15.5); LYMPH # 1.7 10^3/uL (1.5-5.0); LYMPH % 25.6 % (24.0-44.0); MEAN CORPUSCULAR HEMOGLOBIN 27.6 pg (27.0-33.0); MEAN CORPUSCULAR HGB CONC 30.9 g/dl (32.0-36.5); MEAN CORPUSCULAR VOLUME 89.4 fl (80.0-96.0); MONO # 0.4 10^3/uL (0.0-0.8); MONO % 5.7 % (2.0-8.0); NEUTROPHILS # 4.4 10^3/uL (1.5-8.5); PLATELET COUNT, AUTOMATED 216 10^3/uL (150-450); WHITE BLOOD COUNT 6.6 10^3/uL (4.0-10.0)
[2022-04-12 16:25] LABS: ALBUMIN 4.1 GM/DL (3.2-5.2); BILIRUBIN,DIRECT 0.1 MG/DL (0.0-0.2); BILIRUBIN,TOTAL 0.5 MG/DL (0.2-1.0); CALCIUM LEVEL 9.3 MG/DL (8.8-10.2); CREATININE FOR GFR 1.29 MG/DL (0.55-1.30); POTASSIUM SERUM 4.6 MEQ/L (3.5-5.1); TOTAL PROTEIN 7.6 GM/DL (6.4-8.2)
[2022-04-12] MEDS ORDERED: NS 1,000 ML IV ONE (16:40)
[2022-04-12] MEDS ORDERED: ONDANSETRON 4MG 2ML VIAL IV ONE (16:40)
[2022-04-12] MEDS ORDERED: ISOVUE-370 76% 100ML VIAL As Ordered ONE (16:59)
[2022-04-12] MEDS ORDERED: CIPROFLOXACIN 400 MG in IV 1 EA IV ONE (19:05)
[2022-04-12] MEDS ORDERED: ALLO100T PO (19:46)
[2022-04-12] MEDS ORDERED: ACET32TAB PO (19:46)
[2022-04-12] MEDS ORDERED: D 10CHW PO (19:46)
[2022-04-12] MEDS ORDERED: COLC0.6T47 PO (19:46)
[2022-04-12] MEDS ORDERED: HOME MED LIST COMPLETE! XX SCH (19:50)
[2022-04-12] MEDS ORDERED: metroNIDAZOLE 500 MG in IV 1 EA IV ONE (20:00)
[2022-04-12] MEDS ORDERED: ONDANSETRON 4MG 2ML VIAL IV PRN (20:55)
[2022-04-12] MEDS: NS 1,000 ML IV SCH (22:23)
[2022-04-12 22:29] LABS: C REACTIVE PROTEIN QUANTITATIV 4.13 MG/DL (0.00-0.30)
[2022-04-13] MEDS ORDERED: metroNIDAZOLE 750 MG in IV 1 EA IV SCH (06:00)
[2022-04-13] MEDS: metroNIDAZOLE 500 MG in IV 1 EA IV SCH ×3 (06:14→22:13)
[2022-04-13] MEDS ORDERED: HYDROMORPHONE HCL 0.5 MG/ 0.5 ML SYRINGE (J1170 PER 1) IV PRN (06:30)
[2022-04-13 07:15] LABS: HEMATOCRIT 39.4 % (36.0-47.0); HEMOGLOBIN 12.3 g/dl (12.0-15.5); MEAN CORPUSCULAR HEMOGLOBIN 27.6 pg (27.0-33.0); MEAN CORPUSCULAR HGB CONC 31.2 g/dl (32.0-36.5); MEAN CORPUSCULAR VOLUME 88.5 fl (80.0-96.0); PLATELET COUNT, AUTOMATED 158 10^3/uL (150-450); RED BLOOD COUNT 4.45 10^6/uL (4.00-5.40); WHITE BLOOD COUNT 4.1 10^3/uL (4.0-10.0)
[2022-04-13 07:41] LABS: BLOOD UREA NITROGEN 15 MG/DL (7-18); CALCIUM LEVEL 8.6 MG/DL (8.8-10.2); CARBON DIOXIDE LEVEL 21 MEQ/L (21-32); CHLORIDE LEVEL 111 MEQ/L (98-107); CREATININE FOR GFR 0.96 MG/DL (0.55-1.30); GLOMERULAR FILTRATION RATE > 60.0 (>39); GLUCOSE, FASTING 87 MG/DL (70-100); POTASSIUM SERUM 3.9 MEQ/L (3.5-5.1); SODIUM LEVEL 141 MEQ/L (136-145)
[2022-04-13] MEDS: BENAZEPRIL 20 MG TAB PO SCH (09:00)
[2022-04-13] MEDS: CIPROFLOXACIN 400 MG in IV 1 EA IV SCH ×2 (09:08→20:25)
[2022-04-13] MEDS: NS 1,000 ML IV SCH ×2 (09:25→20:49)
[2022-04-13 12:22] VITALS: BP 154/80
[2022-04-13] MEDS ORDERED: MORPHINE 2 MG/ML 1ML VIAL IV PRN (14:25)
[2022-04-13] MEDS ORDERED: zolPIDEM TARTRATE 5 MG TAB PO PRN (14:25)
[2022-04-13] MEDS: LEVOTHYROXINE 88MCG TABLET (0.088 MG) PO SCH (15:01)
[2022-04-13] MEDS: amLODIPine 5 MG TAB PO SCH (15:02)
[2022-04-13] MEDS: bisoproloL fumarate 5 MG TAB PO SCH (15:02)
[2022-04-13 15:24] LABS: INR 1.02; PROTHROMBIN TIME 13.6 SECONDS (12.5-14.5)
[2022-04-13 15:25] LABS: PARTIAL THROMBOPLASTIN TIME 29.9 SECONDS (24.8-34.2)
[2022-04-13] MEDS: ENOXAPARIN 40MG/0.4ML SYRINGE (J1650 PER 10MG) SC SCH (20:24)
[2022-04-13 21:06] VITALS: BP 136/78
[2022-04-13] MEDS ORDERED: HEPARIN SOD (PORCINE) 5000UNITS/ML 1ML VIAL/SYRINGE SC SCH (22:00)
[2022-04-14 04:46] VITALS: BP 128/73
[2022-04-14] MEDS: metroNIDAZOLE 500 MG in IV 1 EA IV SCH ×2 (05:44→14:24)
[2022-04-14] MEDS: LEVOTHYROXINE 88MCG TABLET (0.088 MG) PO SCH (05:44)
[2022-04-14] MEDS: NS 1,000 ML IV SCH ×2 (05:44→17:29)
[2022-04-14 06:24] LABS: HEMATOCRIT 39.5 % (36.0-47.0); HEMOGLOBIN 12.1 g/dl (12.0-15.5); MEAN CORPUSCULAR HEMOGLOBIN 27.3 pg (27.0-33.0); MEAN CORPUSCULAR HGB CONC 30.6 g/dl (32.0-36.5); MEAN CORPUSCULAR VOLUME 89.2 fl (80.0-96.0); PLATELET COUNT, AUTOMATED 153 10^3/uL (150-450); RED BLOOD COUNT 4.43 10^6/uL (4.00-5.40); WHITE BLOOD COUNT 3.8 10^3/uL (4.0-10.0)
[2022-04-14 07:45] LABS: ALBUMIN 3.1 GM/DL (3.2-5.2); ALT/SGPT 14 U/L (12-78); BILIRUBIN,TOTAL 0.3 MG/DL (0.2-1.0); BLOOD UREA NITROGEN 8 MG/DL (7-18); CARBON DIOXIDE LEVEL 20 MEQ/L (21-32); CHLORIDE LEVEL 111 MEQ/L (98-107); CREATININE FOR GFR 0.86 MG/DL (0.55-1.30); GLOMERULAR FILTRATION RATE > 60.0 (>39); GLUCOSE, FASTING 74 MG/DL (70-100); POTASSIUM SERUM 3.9 MEQ/L (3.5-5.1); SODIUM LEVEL 142 MEQ/L (136-145); TOTAL PROTEIN 5.7 GM/DL (6.4-8.2)
[2022-04-14] MEDS: CIPROFLOXACIN 400 MG in IV 1 EA IV SCH (08:44)
[2022-04-14] MEDS: HYDROCHLOROthiazide 6.25MG PER 1/4TAB PO SCH (08:45)
[2022-04-14] MEDS: bisoproloL fumarate 5 MG TAB PO SCH (08:48)
[2022-04-14] MEDS: BENAZEPRIL 20 MG TAB PO SCH (08:48)
[2022-04-14] MEDS: amLODIPine 5 MG TAB PO SCH (08:49)
[2022-04-14 14:00] VITALS: BP 133/74
[2022-04-14] MEDS: CIPROFLOXACIN 500MG TABLET PO SCH (17:37)
[2022-04-14] MEDS: LACTOBACILLUS ACIDOPHILUS CAP (BACID) PO SCH (17:37)
[2022-04-14] MEDS: metroNIDAZOLE (FLAGYL) 500MG TABLET PO SCH (20:55)
[2022-04-14] MEDS: ENOXAPARIN 40MG/0.4ML SYRINGE (J1650 PER 10MG) SC SCH (20:55)
[2022-04-14 22:00] VITALS: BP 127/66
[2022-04-15] MEDS: CIPROFLOXACIN 500MG TABLET PO SCH (05:40)
[2022-04-15] MEDS: metroNIDAZOLE (FLAGYL) 500MG TABLET PO SCH (05:40)
[2022-04-15] MEDS: NS 1,000 ML IV SCH (05:40)
[2022-04-15] MEDS: LEVOTHYROXINE 88MCG TABLET (0.088 MG) PO SCH (05:40)
[2022-04-15 06:00] VITALS: BP 131/75
[2022-04-15 06:49] LABS: HEMATOCRIT 38.5 % (36.0-47.0); MEAN CORPUSCULAR HEMOGLOBIN 27.3 pg (27.0-33.0); MEAN CORPUSCULAR HGB CONC 31.2 g/dl (32.0-36.5); MEAN CORPUSCULAR VOLUME 87.5 fl (80.0-96.0); PLATELET COUNT, AUTOMATED 143 10^3/uL (150-450); WHITE BLOOD COUNT 3.6 10^3/uL (4.0-10.0)
[2022-04-15 07:19] LABS: ALT/SGPT 13 U/L (12-78); BILIRUBIN,TOTAL 0.4 MG/DL (0.2-1.0); BLOOD UREA NITROGEN 7 MG/DL (7-18); CALCIUM LEVEL 8.3 MG/DL (8.8-10.2); CARBON DIOXIDE LEVEL 25 MEQ/L (21-32); CHLORIDE LEVEL 111 MEQ/L (98-107); CREATININE FOR GFR 0.89 MG/DL (0.55-1.30); GLOMERULAR FILTRATION RATE > 60.0 (>39); GLUCOSE, FASTING 101 MG/DL (70-100); POTASSIUM SERUM 3.6 MEQ/L (3.5-5.1); SODIUM LEVEL 143 MEQ/L (136-145); TOTAL PROTEIN 5.4 GM/DL (6.4-8.2)
[2022-04-15] MEDS ORDERED: RISATAB3 PO (07:39)
[2022-04-15] MEDS ORDERED: CIPR-249 PO (07:39)
[2022-04-15] MEDS ORDERED: METR-265 PO (07:39)
[2022-04-15 08:15] VITALS: BP 136/75
[2022-04-15] MEDS: BENAZEPRIL 20 MG TAB PO SCH (08:15)
[2022-04-15] MEDS: LACTOBACILLUS ACIDOPHILUS CAP (BACID) PO SCH (08:15)
[2022-04-15] MEDS: HYDROCHLOROthiazide 6.25MG PER 1/4TAB PO SCH (08:15)
[2022-04-15] MEDS: amLODIPine 5 MG TAB PO SCH (08:16)
[2022-04-15] MEDS: bisoproloL fumarate 5 MG TAB PO SCH (08:16)
[2022-04-15] MEDS ORDERED: ONDA4TAB6 PO (08:30)
== END 2022-04-15 10:30 | disposition home or self-care (01) | DRG 392 ==
LOC: M ED 11:11 → M ED INP 21:27 → ENRESERV 04-13 11:30 → M MS5PR 04-13 12:10
PROVIDERS: ADMIT Internal Medicine; ATTEND Internal Medicine
DX: K57.20 Diverticulitis of large intestine with perforation and abscess without bleeding (principal); M10.9 Gout, unspecified; E03.9 Hypothyroidism, unspecified; I10 Essential (primary) hypertension; Z90.49 Acquired absence of other specified parts of digestive tract; Z87.891 Personal history of nicotine dependence; Z20.822 Contact with and (suspected) exposure to COVID-19; Z79.890 Hormone replacement therapy; Z79.899 Other long term (current) drug therapy; Z88.0 Allergy status to penicillin; Z88.1 Allergy status to other antibiotic agents

== ENCOUNTER 2022-06-02 18:32 | Inpatient (IN) | payer MEDICARE ==
[~2022-06-02] VITALS: Ht 167.6 cm; Wt 88.6 kg
[~2022-06-02 18:32] MED LIST changes: +ACET32TAB PO; +ALLO100T PO; +CIPR-249 PO; +COLC0.6T47 PO; +D 10CHW PO; +METR-265 PO; +ONDA4TAB6 PO; +RISATAB3 PO
[2022-06-02] MEDS ORDERED: fentaNYL 100 MCG/2 ML INJECTION IV ONE ×2 (20:20→21:55)
[2022-06-02 20:49] LABS: BASO % 0.4 % (0.0-1.0); EOS % 0.5 % (0.0-3.0); HEMATOCRIT 40.9 % (36.0-47.0); HEMOGLOBIN 12.8 g/dl (12.0-15.5); LYMPH % 12.6 % (24.0-44.0); MEAN CORPUSCULAR HEMOGLOBIN 27.8 pg (27.0-33.0); MEAN CORPUSCULAR HGB CONC 31.3 g/dl (32.0-36.5); MEAN CORPUSCULAR VOLUME 88.9 fl (80.0-96.0); MONO # 0.3 10^3/uL (0.0-0.8); MONO % 4.2 % (2.0-8.0); NEUTROPHILS # 6.3 10^3/uL (1.5-8.5); NEUTROPHILS % 81.8 % (36.0-66.0); PLATELET COUNT, AUTOMATED 174 10^3/uL (150-450); WHITE BLOOD COUNT 7.7 10^3/uL (4.0-10.0)
[2022-06-02 21:03] LABS: INR 0.89; PROTHROMBIN TIME 12.2 SECONDS (12.5-14.5)
[2022-06-02 21:04] LABS: PARTIAL THROMBOPLASTIN TIME 26.4 SECONDS (24.8-34.2)
[2022-06-02 21:13] LABS: CALCIUM LEVEL 9.2 MG/DL (8.3-10.6); CREATININE FOR GFR 1.01 MG/DL (0.55-1.30); POTASSIUM SERUM 4.2 MMOL/L (3.5-5.1)
[2022-06-02 21:23] LABS: RSV AMPLIFICATION NEGATIVE (NEGATIVE)
[2022-06-02] MEDS ORDERED: ACETAMINOPHEN TAB 650MG DOSE (2X325MG) PO PRN (23:00)
[2022-06-02] MEDS ORDERED: HYDROMORPHONE HCL 0.5 MG/ 0.5 ML SYRINGE (J1170 PER 1) IV PRN (23:00)
[2022-06-02] MEDS ORDERED: HEPARIN SOD (PORCINE) 5000UNITS/ML 1ML VIAL/SYRINGE SC ONE (23:00)
[2022-06-02] MEDS ORDERED: NS 500 ML IV ONE (23:00)
[2022-06-02] MEDS ORDERED: hydrALAZINE 20MG/ML 1ML VIAL IV PRN (23:00)
[2022-06-02] MEDS ORDERED: TEMO0.0517 TOP (23:23)
[2022-06-02] MEDS ORDERED: SYNT88TA2 PO (23:23)
[2022-06-02] MEDS ORDERED: DOCU100C16 PO (23:23)
[2022-06-02] MEDS ORDERED: ONDA4TAB6 PO (23:23)
[2022-06-02] MEDS ORDERED: BISO5TAB14 PO (23:23)
[2022-06-02] MEDS: NS 1,000 ML IV SCH (23:30)
[2022-06-02] MEDS ORDERED: HOME MED LIST COMPLETE! XX SCH (23:40)
[2022-06-03] VITALS (9 sets, daily range): BP systolic 114–151; BP diastolic 62–82
[2022-06-03] MEDS ORDERED: PILL CUTTER 1 EACH XX PRN (01:00)
[2022-06-03] MEDS ORDERED: PERCOCET 5MG/325MG TAB PO PRN (05:50)
[2022-06-03] MEDS: HEPARIN SOD (PORCINE) 5000UNITS/ML 1ML VIAL/SYRINGE SC SCH ×3 (05:54→21:32)
[2022-06-03] MEDS: LEVOTHYROXINE 88MCG TABLET (0.088 MG) PO SCH (06:34)
[2022-06-03] MEDS: PERCOCET 5MG/325MG TAB PO PRN ×2 (06:35→20:40)
[2022-06-03 06:59] LABS: HEMATOCRIT 36.5 % (36.0-47.0); HEMOGLOBIN 11.6 g/dl (12.0-15.5)
[2022-06-03 07:27] LABS: BLOOD UREA NITROGEN 20 MG/DL (9-23); CALCIUM LEVEL 8.6 MG/DL (8.3-10.6); CARBON DIOXIDE LEVEL 23 MMOL/L (20-31); CHLORIDE LEVEL 108 MMOL/L (98-107); CREATININE FOR GFR 0.85 MG/DL (0.55-1.30); GLOMERULAR FILTRATION RATE > 60.0 (>39); GLUCOSE, FASTING 102 MG/DL (74-106); POTASSIUM SERUM 3.8 MMOL/L (3.5-5.1); SODIUM LEVEL 142 MMOL/L (136-145)
[2022-06-03] MEDS: NS 1,000 ML IV SCH ×2 (08:58→19:39)
[2022-06-03] MEDS: DOCUSATE SODIUM 100MG CAPSULE PO SCH ×2 (09:00→20:39)
[2022-06-03] MEDS ORDERED: BENAZEPRIL 20 MG TAB PO SCH (09:00)
[2022-06-03] MEDS ORDERED: ceFAZolin 2 GM/D5W 50 ML IV BAG As Ordered ONE (11:03)
[2022-06-03] MEDS ORDERED: ceFAZolin 2 GM/D5W 50 ML IV BAG ONE (11:03)
[2022-06-03] MEDS ORDERED: ONDANSETRON 4MG 2ML VIAL As Ordered ONE (11:28)
[2022-06-03] MEDS ORDERED: fentaNYL 100 MCG/2 ML INJECTION As Ordered ONE (11:28)
[2022-06-03] MEDS ORDERED: LIDOCAINE 2% 100MG/5ML SDV (FOR ANES.) As Ordered ONE (11:28)
[2022-06-03] MEDS ORDERED: propofoL 200 MG/20 ML VIAL As Ordered ONE (11:28)
[2022-06-03] MEDS ORDERED: ROCURONIUM BROMIDE 50MG/5ML VIAL As Ordered ONE (11:28)
[2022-06-03] MEDS ORDERED: MIDAZOLAM INJ 2MG/2ML VIAL (J2250 PER 1MG) As Ordered ONE (11:28)
[2022-06-03] MEDS ORDERED: METOCLOPRAMIDE INJ 10MG/2ML VIAL As Ordered ONE (11:28)
[2022-06-03] MEDS ORDERED: ePHEDrine SULFATE 25 MG/5 ML(5MG/ML) SYRINGE As Ordered ONE (11:28)
[2022-06-03] MEDS ORDERED: HYDROmorphone HCL 2MG/ML 1ML VIAL As Ordered ONE (11:28)
[2022-06-03] MEDS ORDERED: SUGAMMADEX SODIUM 500 MG/5 ML VIAL (BRIDION) As Ordered ONE (11:28)
[2022-06-03] MEDS ORDERED: ACETAMINOPHEN 1000MG 100ML IV BAG As Ordered ONE (12:02)
[2022-06-03] MEDS ORDERED: LR 1,000 ML IV SCH (12:40)
[2022-06-03] MEDS ORDERED: ONDANSETRON 4MG 2ML VIAL IV PRN (12:40)
[2022-06-03] MEDS ORDERED: fentaNYL 100 MCG/2 ML INJECTION IV PRN (12:40)
[2022-06-03] MEDS ORDERED: CLINDAMYCIN 900 MG in IV 1 EA IV SCH (12:40)
[2022-06-03] MEDS ORDERED: oxyCODONE 5MG TAB PO PRN (12:40)
[2022-06-03] MEDS: bisoproloL fumarate 5 MG TAB PO SCH (14:28)
[2022-06-03] MEDS: amLODIPine 5 MG TAB PO SCH (14:29)
[2022-06-03] MEDS: allopurinoL 100 MG TAB PO SCH (20:41)
[2022-06-03] MEDS: ONDANSETRON 4MG ORAL DISINTEGRATING TAB PO PRN (20:41)
[2022-06-03] MEDS: ceFAZolin SOD 2 GM in IV 1 EA IV SCH (21:31)
[2022-06-04 02:00] VITALS: BP 125/70
[2022-06-04] MEDS: ONDANSETRON 4MG ORAL DISINTEGRATING TAB PO PRN ×3 (03:24→22:55)
[2022-06-04] MEDS: PERCOCET 5MG/325MG TAB PO PRN ×3 (03:24→22:57)
[2022-06-04] MEDS: LEVOTHYROXINE 88MCG TABLET (0.088 MG) PO SCH (05:22)
[2022-06-04] MEDS: HEPARIN SOD (PORCINE) 5000UNITS/ML 1ML VIAL/SYRINGE SC SCH ×3 (05:22→21:35)
[2022-06-04] MEDS: ceFAZolin SOD 2 GM in IV 1 EA IV SCH (05:22)
[2022-06-04 06:00] VITALS: BP 110/56
[2022-06-04 06:51] LABS: BASO % 0.4 % (0.0-1.0); HEMOGLOBIN 9.7 g/dl (12.0-15.5); LYMPH % 20.5 % (24.0-44.0); MEAN CORPUSCULAR HEMOGLOBIN 28.4 pg (27.0-33.0); MEAN CORPUSCULAR HGB CONC 31.3 g/dl (32.0-36.5); MEAN CORPUSCULAR VOLUME 90.6 fl (80.0-96.0); MONO # 0.4 10^3/uL (0.0-0.8); MONO % 7.7 % (2.0-8.0); NEUTROPHILS # 3.6 10^3/uL (1.5-8.5); NEUTROPHILS % 70.8 % (36.0-66.0); PLATELET COUNT, AUTOMATED 141 10^3/uL (150-450); RED BLOOD COUNT 3.42 10^6/uL (4.00-5.40); WHITE BLOOD COUNT 5.1 10^3/uL (4.0-10.0)
[2022-06-04 07:13] LABS: MAGNESIUM LEVEL 1.8 MG/DL (1.8-2.4)
[2022-06-04 07:15] LABS: ALBUMIN 2.8 G/DL (3.2-5.2); ALKALINE PHOSPHATASE 80 U/L (46-116); ALT/SGPT 42 U/L (7.0-40); AST/SGOT 45 U/L (<34); BILIRUBIN,TOTAL 0.4 MG/DL (0.3-1.2); BLOOD UREA NITROGEN 13 MG/DL (9-23); CALCIUM LEVEL 8.1 MG/DL (8.3-10.6); CARBON DIOXIDE LEVEL 27 MMOL/L (20-31); CHLORIDE LEVEL 106 MMOL/L (98-107); CREATININE FOR GFR 0.85 MG/DL (0.55-1.30); GLOMERULAR FILTRATION RATE > 60.0 (>39); GLUCOSE, FASTING 103 MG/DL (74-106); POTASSIUM SERUM 4.3 MMOL/L (3.5-5.1); SODIUM LEVEL 140 MMOL/L (136-145); TOTAL PROTEIN 5.3 G/DL (5.7-8.2)
[2022-06-04] MEDS ORDERED: CEPACOL LOZENGE PO PRN (08:50)
[2022-06-04] MEDS: bisoproloL fumarate 5 MG TAB PO SCH (09:01)
[2022-06-04] MEDS: amLODIPine 5 MG TAB PO SCH (09:01)
[2022-06-04] MEDS: DOCUSATE SODIUM 100MG CAPSULE PO SCH ×2 (09:01→20:57)
[2022-06-04 10:00] VITALS: BP 122/62
[2022-06-04 12:13] LABS: HEMATOCRIT 31.7 % (36.0-47.0); HEMOGLOBIN 9.9 g/dl (12.0-15.5)
[2022-06-04] MEDS: allopurinoL 100 MG TAB PO SCH (20:56)
[2022-06-04 21:25] VITALS: BP 125/60
[2022-06-05] MEDS: HEPARIN SOD (PORCINE) 5000UNITS/ML 1ML VIAL/SYRINGE SC SCH ×3 (05:50→21:52)
[2022-06-05] MEDS: LEVOTHYROXINE 88MCG TABLET (0.088 MG) PO SCH (05:50)
[2022-06-05 05:56] VITALS: BP 121/62
[2022-06-05] MEDS: bisoproloL fumarate 5 MG TAB PO SCH (08:45)
[2022-06-05] MEDS: amLODIPine 5 MG TAB PO SCH (08:45)
[2022-06-05] MEDS: ONDANSETRON 4MG ORAL DISINTEGRATING TAB PO PRN ×3 (08:46→18:39)
[2022-06-05] MEDS: DOCUSATE SODIUM 100MG CAPSULE PO SCH ×2 (08:46→21:51)
[2022-06-05] MEDS ORDERED: PREVNAR-20 VACCINE 0.5ML SYRINGE IM.IMMUN ONE (09:00)
[2022-06-05] MEDS ORDERED: MORPHINE 4 MG/ML 1ML VIAL IV PRN (13:15)
[2022-06-05] MEDS: PERCOCET 5MG/325MG TAB PO PRN ×3 (13:56→22:39)
[2022-06-05 20:07] VITALS: BP 125/68
[2022-06-05] MEDS: allopurinoL 100 MG TAB PO SCH (21:51)
[2022-06-06] MEDS: PERCOCET 5MG/325MG TAB PO PRN ×4 (02:34→20:29)
[2022-06-06 06:00] VITALS: BP 118/60
[2022-06-06] MEDS ORDERED: LEVOTHYROXINE 88MCG TABLET (0.088 MG) PO SCH (06:00)
[2022-06-06] MEDS: HEPARIN SOD (PORCINE) 5000UNITS/ML 1ML VIAL/SYRINGE SC SCH ×3 (06:02→22:02)
[2022-06-06] MEDS: DOCUSATE SODIUM 100MG CAPSULE PO SCH ×2 (08:23→20:27)
[2022-06-06] MEDS: bisoproloL fumarate 5 MG TAB PO SCH (08:25)
[2022-06-06] MEDS: amLODIPine 5 MG TAB PO SCH (08:30)
[2022-06-06] MEDS: ONDANSETRON 4MG ORAL DISINTEGRATING TAB PO PRN (08:30)
[2022-06-06] MEDS: MIRALAX *UNIT DOSE* 17GM PACKET PO PRN (08:30)
[2022-06-06] MEDS: allopurinoL 100 MG TAB PO SCH (20:28)
[2022-06-07] MEDS: LEVOTHYROXINE 88MCG TABLET (0.088 MG) PO SCH (05:13)
[2022-06-07] MEDS: HEPARIN SOD (PORCINE) 5000UNITS/ML 1ML VIAL/SYRINGE SC SCH ×3 (05:13→22:24)
[2022-06-07] MEDS: PERCOCET 5MG/325MG TAB PO PRN ×3 (05:14→17:51)
[2022-06-07 06:00] VITALS: BP 129/72
[2022-06-07] MEDS: DOCUSATE SODIUM 100MG CAPSULE PO SCH ×2 (09:52→20:17)
[2022-06-07] MEDS: bisoproloL fumarate 5 MG TAB PO SCH (09:53)
[2022-06-07] MEDS: amLODIPine 5 MG TAB PO SCH (09:53)
[2022-06-07] MEDS: MIRALAX *UNIT DOSE* 17GM PACKET PO PRN (11:37)
[2022-06-07] MEDS: allopurinoL 100 MG TAB PO SCH (20:17)
[2022-06-08] MEDS: PERCOCET 5MG/325MG TAB PO PRN ×5 (00:23→23:47)
[2022-06-08] MEDS: LEVOTHYROXINE 88MCG TABLET (0.088 MG) PO SCH (05:18)
[2022-06-08] MEDS: HEPARIN SOD (PORCINE) 5000UNITS/ML 1ML VIAL/SYRINGE SC SCH ×3 (05:18→21:32)
[2022-06-08 05:28] VITALS: BP 130/64
[2022-06-08] MEDS: bisoproloL fumarate 5 MG TAB PO SCH (08:44)
[2022-06-08] MEDS: DOCUSATE SODIUM 100MG CAPSULE PO SCH ×2 (08:44→19:59)
[2022-06-08] MEDS: amLODIPine 5 MG TAB PO SCH (08:45)
[2022-06-08] MEDS: BISACODYL 10MG SUPP PR SCH ×2 (12:00→20:00)
[2022-06-08] MEDS: allopurinoL 100 MG TAB PO SCH (20:00)
[2022-06-08] MEDS: CLOTRIMAZOLE 1% TOPICAL CREAM 30GM TOP SCH (21:32)
[2022-06-09 05:35] VITALS: BP 127/69
[2022-06-09] MEDS: LEVOTHYROXINE 88MCG TABLET (0.088 MG) PO SCH (05:37)
[2022-06-09] MEDS: HEPARIN SOD (PORCINE) 5000UNITS/ML 1ML VIAL/SYRINGE SC SCH ×3 (05:37→20:47)
[2022-06-09] MEDS: PERCOCET 5MG/325MG TAB PO PRN ×3 (08:29→20:48)
[2022-06-09] MEDS: DOCUSATE SODIUM 100MG CAPSULE PO SCH ×2 (08:30→20:48)
[2022-06-09] MEDS: amLODIPine 5 MG TAB PO SCH (08:34)
[2022-06-09] MEDS: bisoproloL fumarate 5 MG TAB PO SCH (08:35)
[2022-06-09] MEDS: SENNA 8.6 MG TAB (SENOKOT) PO SCH (08:35)
[2022-06-09] MEDS: CLOTRIMAZOLE 1% TOPICAL CREAM 30GM TOP SCH ×2 (08:36→20:49)
[2022-06-09] MEDS: MIRALAX *UNIT DOSE* 17GM PACKET PO SCH (08:36)
[2022-06-09] MEDS: BISACODYL 10MG SUPP PR SCH ×2 (08:36→20:53)
[2022-06-09 20:12] VITALS: BP 135/91
[2022-06-09] MEDS: allopurinoL 100 MG TAB PO SCH (20:48)
[2022-06-09] MEDS ORDERED: PERCOCET 5MG/325MG TAB PO ONE (21:50)
[2022-06-10] MEDS ORDERED: oxyCODONE 5MG TAB PO ONE (01:00)
[2022-06-10 05:26] VITALS: BP 135/91
[2022-06-10] MEDS: LEVOTHYROXINE 88MCG TABLET (0.088 MG) PO SCH (06:11)
[2022-06-10] MEDS: HEPARIN SOD (PORCINE) 5000UNITS/ML 1ML VIAL/SYRINGE SC SCH ×3 (06:11→20:26)
[2022-06-10] MEDS: PERCOCET 5MG/325MG TAB PO PRN ×3 (06:12→18:19)
[2022-06-10] MEDS: MIRALAX *UNIT DOSE* 17GM PACKET PO SCH (10:59)
[2022-06-10] MEDS: SENNA 8.6 MG TAB (SENOKOT) PO SCH (10:59)
[2022-06-10] MEDS: DOCUSATE SODIUM 100MG CAPSULE PO SCH ×2 (10:59→20:26)
[2022-06-10] MEDS: bisoproloL fumarate 5 MG TAB PO SCH (11:00)
[2022-06-10] MEDS: amLODIPine 5 MG TAB PO SCH (11:00)
[2022-06-10] MEDS: BISACODYL 10MG SUPP PR SCH ×2 (11:01→20:26)
[2022-06-10] MEDS: CLOTRIMAZOLE 1% TOPICAL CREAM 30GM TOP SCH ×2 (11:01→20:26)
[2022-06-10] MEDS: allopurinoL 100 MG TAB PO SCH (20:26)
[2022-06-11] MEDS: HEPARIN SOD (PORCINE) 5000UNITS/ML 1ML VIAL/SYRINGE SC SCH ×3 (05:28→21:21)
[2022-06-11] MEDS: LEVOTHYROXINE 88MCG TABLET (0.088 MG) PO SCH (05:28)
[2022-06-11] MEDS: PERCOCET 5MG/325MG TAB PO PRN ×3 (05:30→19:14)
[2022-06-11 05:49] VITALS: BP 116/59
[2022-06-11] MEDS: BISACODYL 10MG SUPP PR SCH ×3 (09:00→20:04)
[2022-06-11] MEDS: MIRALAX *UNIT DOSE* 17GM PACKET PO SCH (09:04)
[2022-06-11] MEDS: bisoproloL fumarate 5 MG TAB PO SCH (09:05)
[2022-06-11] MEDS: SENNA 8.6 MG TAB (SENOKOT) PO SCH (09:05)
[2022-06-11] MEDS: DOCUSATE SODIUM 100MG CAPSULE PO SCH ×2 (09:05→19:53)
[2022-06-11] MEDS: CLOTRIMAZOLE 1% TOPICAL CREAM 30GM TOP SCH ×2 (09:05→19:53)
[2022-06-11] MEDS: amLODIPine 5 MG TAB PO SCH (09:05)
[2022-06-11] MEDS ORDERED: PERCOCET PO (18:35)
[2022-06-11] MEDS ORDERED: MIRA1POW3 PO (18:35)
[2022-06-11] MEDS ORDERED: AMLO1TAB24 PO (18:35)
[2022-06-11] MEDS ORDERED: SENN18TA PO (18:35)
[2022-06-11] MEDS ORDERED: ASPI81CH33 PO (18:39)
[2022-06-11] MEDS: allopurinoL 100 MG TAB PO SCH (19:53)
[2022-06-12] MEDS: PERCOCET 5MG/325MG TAB PO PRN ×2 (04:04→10:28)
[2022-06-12] MEDS: HEPARIN SOD (PORCINE) 5000UNITS/ML 1ML VIAL/SYRINGE SC SCH (05:28)
[2022-06-12] MEDS: LEVOTHYROXINE 88MCG TABLET (0.088 MG) PO SCH (05:28)
[2022-06-12 06:00] VITALS: BP 134/65
[2022-06-12] MEDS: BISACODYL 10MG SUPP PR SCH (09:00)
[2022-06-12] MEDS: MIRALAX *UNIT DOSE* 17GM PACKET PO SCH (09:26)
[2022-06-12] MEDS: bisoproloL fumarate 5 MG TAB PO SCH (09:26)
[2022-06-12 09:27] VITALS: BP 134/65
[2022-06-12] MEDS: DOCUSATE SODIUM 100MG CAPSULE PO SCH (09:27)
[2022-06-12] MEDS: CLOTRIMAZOLE 1% TOPICAL CREAM 30GM TOP SCH (09:27)
[2022-06-12] MEDS: amLODIPine 5 MG TAB PO SCH (09:27)
[2022-06-12] MEDS: SENNA 8.6 MG TAB (SENOKOT) PO SCH (09:27)
[2022-06-12] MEDS ORDERED: CLOTR1CR TOP (10:33)
== END 2022-06-12 12:35 | disposition home health service (06) | DRG 482 ==
LOC: EDBD 18:32 → M ED 18:32 → M ED INP 22:56 → ENRESERV 06-03 04:29 → M MS5PR 06-03 05:25
PROVIDERS: ADMIT Internal Medicine; ATTEND Internal Medicine Nephrology
PROC: 0QS606Z Reposition Right Upper Femur with Intramedullary Internal Fixation Device, Open Approach (ICD-10-PCS; principal; 2022-06-03 15:00)
DX: S72.301A Unspecified fracture of shaft of right femur, initial encounter for closed fracture (principal); E03.9 Hypothyroidism, unspecified; I10 Essential (primary) hypertension; M10.9 Gout, unspecified; K59.00 Constipation, unspecified; B35.8 Other dermatophytoses; Z88.0 Allergy status to penicillin; Z88.8 Allergy status to other drugs, medicaments and biological substances; Z79.899 Other long term (current) drug therapy; Z79.82 Long term (current) use of aspirin; W00.0XXA Fall on same level due to ice and snow, initial encounter; Y92.009 Unspecified place in unspecified non-institutional (private) residence as the place of occurrence of the external cause

== ENCOUNTER 2022-06-27 21:48 | Emergency (ER) | payer MEDICARE ==
[~2022-06-27] VITALS: Ht 167.6 cm; Wt 85.2 kg
[~2022-06-27 21:48] MED LIST changes: +AMLO1TAB24 PO; +ASPI81CH33 PO; +CLOTR1CR TOP; +DOCU100C16 PO; +MIRA1POW3 PO; +PERCOCET PO; +SENN18TA PO; +SYNT88TA2 PO; +TEMO0.0517 TOP
[2022-06-28] MEDS ORDERED: PERCOCET 5MG/325MG TAB PO ONE (00:30)
[2022-06-28 00:52] LABS: LIPASE 22 U/L (12-53)
[2022-06-28 00:54] LABS: ALBUMIN 3.4 G/DL (3.2-5.2); ALKALINE PHOSPHATASE 179 U/L (46-116); ALT/SGPT < 9 U/L (7.0-40); AST/SGOT 18 U/L (<34); BILIRUBIN,DIRECT 0.2 MG/DL (<0.4); BILIRUBIN,TOTAL 0.5 MG/DL (0.3-1.2); CPK CREATINE PHOSPHOKINASE 106 U/L (34-145); TOTAL PROTEIN 7.1 G/DL (5.7-8.2)
[2022-06-28 00:55] LABS: RSV AMPLIFICATION NEGATIVE (NEGATIVE)
[2022-06-28 01:05] LABS: PROTHROMBIN TIME 13.4 SECONDS (12.5-14.5)
[2022-06-28] MEDS ORDERED: ASPIRIN 325 MG TAB PO ONE (01:10)
[2022-06-28] MEDS ORDERED: NITROGLYCERIN 0.4MG SUBL TABLET SL PRN (01:10)
[2022-06-28 01:15] LABS: BASO # 0.1 10^3/uL (0.0-0.2); BASO % 0.6 % (0.0-1.0); EOS # 0.1 10^3/uL (0.0-0.5); EOS % 1.1 % (0.0-3.0); HEMATOCRIT 38.1 % (36.0-47.0); HEMOGLOBIN 11.3 g/dl (12.0-15.5); LYMPH # 1.1 10^3/uL (1.5-5.0); MEAN CORPUSCULAR HEMOGLOBIN 27.3 pg (27.0-33.0); MEAN CORPUSCULAR HGB CONC 29.7 g/dl (32.0-36.5); MONO # 0.5 10^3/uL (0.0-0.8); MONO % 5.9 % (2.0-8.0); NEUTROPHILS % 80.1 % (36.0-66.0); PLATELET COUNT, AUTOMATED 274 10^3/uL (150-450); RED BLOOD COUNT 4.14 10^6/uL (4.00-5.40); WHITE BLOOD COUNT 8.8 10^3/uL (4.0-10.0)
[2022-06-28 01:33] LABS: D-DIMER QUANT > 4000 ng/ml (<500)
[2022-06-28] MEDS ORDERED: ISOVUE-370 76% 100ML VIAL As Ordered ONE (02:18)
[2022-06-28] MEDS ORDERED: HEPARIN DRIP 25,000 UNITS in IV 1 EA IV SCH (02:45)
[2022-06-28] MEDS ORDERED: ONDANSETRON 4MG 2ML VIAL IV ONE (02:50)
[2022-06-28 02:58] LABS: PARTIAL THROMBOPLASTIN TIME 30.9 SECONDS (24.8-34.2)
[2022-06-28 04:00] VITALS: BP 106/65
[2022-06-28 12:42] LABS: CK-MB VALUE MASS 5.3 NG/ML (<3.6)
[2022-06-28 12:42] LABS: CK-MB VALUE MASS 5.6 NG/ML (<3.6); MB/CK RELATIVE INDEX 5.28 (< OR =4)
== END 2022-06-28 04:30 | disposition short-term general hospital (02) ==
LOC: EDBD 21:48 → M ED 21:48
DX: I26.92 Saddle embolus of pulmonary artery without acute cor pulmonale (principal); I51.7 Cardiomegaly; I25.10 Atherosclerotic heart disease of native coronary artery without angina pectoris; I10 Essential (primary) hypertension; K59.00 Constipation, unspecified; Z87.891 Personal history of nicotine dependence; Z79.890 Hormone replacement therapy; Z79.899 Other long term (current) drug therapy; Z88.0 Allergy status to penicillin
CPT/HCPCS: 71045; 71275; 73552; 80047; 80076; 82550; 82553; 83690; 84484; 85025; 85379; 85610; 85730; 87631; 93005; 93041; 94760; 96365; 96375; 99285; J2405; Q9967

== ENCOUNTER → 2022-07-14 | Outpatient (CLI) | payer MEDICARE | LOC: M SOG 08:07 | PROVIDERS: ATTEND Physician Assistant | DX: M79.651 Pain in right thigh (principal); Z53.8 Procedure and treatment not carried out for other reasons ==

== ENCOUNTER → 2022-08-04 | Outpatient (CLI) | payer MEDICARE | LOC: M SOG 08:58 | PROVIDERS: ATTEND Orthopaedic Surgery | DX: S72.301D Unspecified fracture of shaft of right femur, subsequent encounter for closed fracture with routine healing (principal); W18.30XD Fall on same level, unspecified, subsequent encounter ==

== ENCOUNTER → 2022-08-12 | Outpatient (CLI) | payer MEDICARE ==
[2022-08-12 20:08] LABS: HEMATOCRIT 35.9 % (36.0-47.0); HEMOGLOBIN 10.4 g/dl (12.0-15.5); MEAN CORPUSCULAR HEMOGLOBIN 24.9 pg (27.0-33.0); MEAN CORPUSCULAR VOLUME 86.1 fl (80.0-96.0); PLATELET COUNT, AUTOMATED 313 10^3/uL (150-450); RED BLOOD COUNT 4.17 10^6/uL (4.00-5.40); WHITE BLOOD COUNT 7.4 10^3/uL (4.0-10.0)
[2022-08-12 20:17] LABS: CALCIUM LEVEL 8.9 MG/DL (8.3-10.6); CREATININE FOR GFR 0.99 MG/DL (0.55-1.30); GLOMERULAR FILTRATION RATE 58.4 (>39); POTASSIUM SERUM 3.8 MMOL/L (3.5-5.1)
== END ==
LOC: M WUC 15:58
PROVIDERS: ATTEND Internal Medicine
DX: U09.9 Post COVID-19 condition, unspecified (principal)

== ENCOUNTER → 2022-08-12 | Outpatient (CLI) | payer MEDICARE ==
[2022-08-12 20:10] LABS: BASO # 0.1 10^3/uL (0.0-0.2); BASO % 0.8 % (0.0-1.0); EOS # 0.2 10^3/uL (0.0-0.5); EOS % 2.1 % (0.0-3.0); HEMOGLOBIN 10.5 g/dl (12.0-15.5); LYMPH # 2.1 10^3/uL (1.5-5.0); LYMPH % 28.3 % (24.0-44.0); MEAN CORPUSCULAR HEMOGLOBIN 25.2 pg (27.0-33.0); MEAN CORPUSCULAR HGB CONC 29.2 g/dl (32.0-36.5); MEAN CORPUSCULAR VOLUME 86.3 fl (80.0-96.0); MONO # 0.4 10^3/uL (0.0-0.8); NEUTROPHILS # 4.6 10^3/uL (1.5-8.5); NEUTROPHILS % 63.5 % (36.0-66.0); PLATELET COUNT, AUTOMATED 309 10^3/uL (150-450); RED BLOOD COUNT 4.17 10^6/uL (4.00-5.40); WHITE BLOOD COUNT 7.3 10^3/uL (4.0-10.0)
[2022-08-12 20:17] LABS: ALKALINE PHOSPHATASE 137 U/L (46-116); ALT/SGPT < 9 U/L (7.0-40); AST/SGOT 9 U/L (<34); BILIRUBIN,TOTAL 0.3 MG/DL (0.3-1.2); BLOOD UREA NITROGEN 20 MG/DL (9-23); CALCIUM LEVEL 8.9 MG/DL (8.3-10.6); CARBON DIOXIDE LEVEL 28 MMOL/L (20-31); CHLORIDE LEVEL 104 MMOL/L (98-107); CREATININE FOR GFR 0.97 MG/DL (0.55-1.30); GLOMERULAR FILTRATION RATE 59.8 (>39); GLUCOSE, FASTING 77 MG/DL (74-106); POTASSIUM SERUM 3.7 MMOL/L (3.5-5.1); SODIUM LEVEL 141 MMOL/L (136-145); TOTAL PROTEIN 7.4 G/DL (5.7-8.2)
== END ==
LOC: M WUC 15:56
PROVIDERS: ATTEND Physician Assistant
DX: I26.99 Other pulmonary embolism without acute cor pulmonale (principal)

== ENCOUNTER → 2022-09-01 | Outpatient (CLI) | payer MEDICARE | LOC: M SOG 13:57 | PROVIDERS: ATTEND Orthopaedic Surgery | DX: S72.391D Other fracture of shaft of right femur, subsequent encounter for closed fracture with routine healing (principal) ==

== ENCOUNTER 2022-10-15 14:06 | Emergency (ER) | payer MEDICARE ==
[~2022-10-15] VITALS: Ht 167.6 cm; Wt 86.4 kg
[2022-10-15] MEDS ORDERED: BENAZEPRIL 20 MG TAB PO ONE (16:05)
[2022-10-15] MEDS ORDERED: amLODIPine 5 MG TAB PO ONE (16:05)
[2022-10-15 16:21] LABS: BASO % 0.7 % (0.0-1.0); EOS # 0.2 10^3/uL (0.0-0.5); EOS % 3.4 % (0.0-3.0); HEMATOCRIT 43.6 % (36.0-47.0); HEMOGLOBIN 13.7 g/dl (12.0-15.5); LYMPH # 1.7 10^3/uL (1.5-5.0); MEAN CORPUSCULAR HEMOGLOBIN 27.4 pg (27.0-33.0); MEAN CORPUSCULAR HGB CONC 31.4 g/dl (32.0-36.5); MEAN CORPUSCULAR VOLUME 87.2 fl (80.0-96.0); MONO # 0.3 10^3/uL (0.0-0.8); MONO % 4.9 % (2.0-8.0); NEUTROPHILS # 3.7 10^3/uL (1.5-8.5); NEUTROPHILS % 62.8 % (36.0-66.0); PLATELET COUNT, AUTOMATED 201 10^3/uL (150-450); WHITE BLOOD COUNT 5.9 10^3/uL (4.0-10.0)
[2022-10-15 17:09] VITALS: BP 209/94
[2022-10-15 17:25] LABS: APPEARANCE, URINE CLEAR (CLEAR); BACTERIA, URINE AUTO NEGATIVE (NEGATIVE); BILIRUBIN, URINE AUTO NEGATIVE (NEGATIVE); BLOOD, URINE BLOOD NEGATIVE (NEGATIVE); COLOR, URINE STRAW (YELLOW); GLUCOSE, URINE (UA) AUTO NEGATIVE (NEGATIVE); KETONE, URINE AUTO NEGATIVE (NEGATIVE); LEUKOCYTE ESTERASE, URINE AUTO NEGATIVE (NEGATIVE); NITRITE, URINE AUTO NEGATIVE (NEGATIVE); PROTEIN, URINE AUTO NEGATIVE (NEGATIVE); RBC, URINE AUTO 0 /HPF (0-3); SQUAMOUS EPITHELIAL CELL UR AU 0 /HPF (0-6); UROBILINOGEN, URINE AUTO 0.2 mg/dL (0.0-2.0); WBC, URINE AUTO 0 /HPF (0-3)
[2022-10-15 18:04] LABS: ALBUMIN 4.4 G/DL (3.2-5.2); ALKALINE PHOSPHATASE 116 U/L (46-116); ALT/SGPT 9 U/L (7.0-40); AST/SGOT 17 U/L (<34); BILIRUBIN,DIRECT < 0.1 MG/DL (<0.4); BILIRUBIN,TOTAL 0.3 MG/DL (0.3-1.2); BLOOD UREA NITROGEN 18 MG/DL (9-23); CARBON DIOXIDE LEVEL 28 MMOL/L (20-31); CHLORIDE LEVEL 105 MMOL/L (98-107); CREATININE FOR GFR 1.03 MG/DL (0.55-1.30); GLOMERULAR FILTRATION RATE 55.8 (>39); GLUCOSE, FASTING 97 MG/DL (74-106); POTASSIUM SERUM 4.2 MMOL/L (3.5-5.1); SODIUM LEVEL 139 MMOL/L (136-145); TOTAL PROTEIN 7.4 G/DL (5.7-8.2)
[2022-10-15 18:48] VITALS: BP 158/72
== END 2022-10-15 19:26 | disposition home or self-care (01) ==
LOC: M ED 14:06
DX: I10 Essential (primary) hypertension (principal); Z86.711 Personal history of pulmonary embolism; Z79.01 Long term (current) use of anticoagulants; Z88.0 Allergy status to penicillin; Z88.1 Allergy status to other antibiotic agents; Z79.899 Other long term (current) drug therapy; Z79.82 Long term (current) use of aspirin

== ENCOUNTER → 2022-10-28 | Outpatient (CLI) | payer MEDICARE | LOC: M WHC 13:52 | PROVIDERS: ATTEND Family Medicine | DX: Z12.31 Encounter for screening mammogram for malignant neoplasm of breast (principal) ==

== ENCOUNTER → 2022-11-01 | Outpatient (CLI) | payer MEDICARE | LOC: M SOG 09:09 | PROVIDERS: ATTEND Orthopaedic Surgery | DX: S72.301D Unspecified fracture of shaft of right femur, subsequent encounter for closed fracture with routine healing (principal) ==

== ENCOUNTER → 2022-12-02 | Outpatient (REF) | payer MEDICARE ==
[~2022-12-02] MED LIST changes: +SENN-111 PO; -SENN18TA PO
== END ==
LOC: M SFHCWAGY 17:05
PROVIDERS: ATTEND Obstetrics & Gynecology
DX: N39.0 Urinary tract infection, site not specified (principal)

== ENCOUNTER → 2022-12-15 | Outpatient (REF) | payer MEDICARE | LOC: M SFHCWAGY 17:15 | PROVIDERS: ATTEND Nurse Practitioner Family | DX: Z12.4 Encounter for screening for malignant neoplasm of cervix (principal); N84.2 Polyp of vagina; N95.2 Postmenopausal atrophic vaginitis | CPT/HCPCS: 87624; G0123 ==

== ENCOUNTER → 2022-12-22 | Outpatient (CLI) | payer MEDICARE | LOC: M RAD 13:57 | PROVIDERS: ATTEND Nurse Practitioner Family | DX: R10.2 Pelvic and perineal pain (principal) ==

== ENCOUNTER → 2023-04-10 | Outpatient (CLI) | payer MEDICARE ==
[2023-04-10 13:10] LABS: BASO # 0.1 10^3/uL (0.0-0.2); BASO % 0.8 % (0.0-1.0); EOS # 0.2 10^3/uL (0.0-0.5); EOS % 3.6 % (0.0-3.0); HEMATOCRIT 31.7 % (36.0-47.0); HEMOGLOBIN 9.6 g/dl (12.0-15.5); LYMPH # 1.4 10^3/uL (1.5-5.0); LYMPH % 21.6 % (24.0-44.0); MEAN CORPUSCULAR HEMOGLOBIN 26.3 pg (27.0-33.0); MEAN CORPUSCULAR HGB CONC 30.3 g/dl (32.0-36.5); MEAN CORPUSCULAR VOLUME 86.8 fl (80.0-96.0); MONO # 0.4 10^3/uL (0.0-0.8); NEUTROPHILS # 4.3 10^3/uL (1.5-8.5); NEUTROPHILS % 67.7 % (36.0-66.0); PLATELET COUNT, AUTOMATED 227 10^3/uL (150-450); RED BLOOD COUNT 3.65 10^6/uL (4.00-5.40); WHITE BLOOD COUNT 6.3 10^3/uL (4.0-10.0)
[2023-04-10 13:13] LABS: ALBUMIN 3.7 G/DL (3.2-5.2); ALKALINE PHOSPHATASE 81 U/L (46-116); ALT/SGPT < 9 U/L (7.0-40); AST/SGOT 9 U/L (<34); BILIRUBIN,TOTAL 0.2 MG/DL (0.3-1.2); BLOOD UREA NITROGEN 24 MG/DL (9-23); CARBON DIOXIDE LEVEL 27 MMOL/L (20-31); CHLORIDE LEVEL 108 MMOL/L (98-107); CHOLESTEROL LEVEL 154 MG/DL (<200); GLOMERULAR FILTRATION RATE 51.5 (>39); GLUCOSE, FASTING 100 MG/DL (74-106); HDL CHOLESTEROL 45.2 MG/DL (>40); LDL CHOLESTEROL 87.2 MG/DL (<100); NON-HDL-C 108.8 MG/DL; POTASSIUM SERUM 4.5 MMOL/L (3.5-5.1); SODIUM LEVEL 143 MMOL/L (136-145); TOTAL PROTEIN 6.5 G/DL (5.7-8.2); TRIGLYCERIDES LEVEL 108 MG/DL (<150)
== END ==
LOC: M WUC 10:09
PROVIDERS: ATTEND Internal Medicine Cardiovascular Disease
DX: I26.99 Other pulmonary embolism without acute cor pulmonale (principal); I10 Essential (primary) hypertension; I48.0 Paroxysmal atrial fibrillation; E03.9 Hypothyroidism, unspecified; R06.09 Other forms of dyspnea

== ENCOUNTER → 2023-07-12 | Outpatient (REF) | payer MEDICARE ==
[2023-07-12 19:41] LABS: BASO % 0.6 % (0.0-1.0); EOS # 0.2 10^3/uL (0.0-0.5); EOS % 3.4 % (0.0-3.0); HEMATOCRIT 42.3 % (36.0-47.0); LYMPH # 1.7 10^3/uL (1.5-5.0); LYMPH % 25.5 % (24.0-44.0); MEAN CORPUSCULAR HEMOGLOBIN 27.3 pg (27.0-33.0); MEAN CORPUSCULAR HGB CONC 30.7 g/dl (32.0-36.5); MEAN CORPUSCULAR VOLUME 88.7 fl (80.0-96.0); MONO # 0.3 10^3/uL (0.0-0.8); MONO % 4.9 % (2.0-8.0); NEUTROPHILS # 4.2 10^3/uL (1.5-8.5); NEUTROPHILS % 65.3 % (36.0-66.0); PLATELET COUNT, AUTOMATED 223 10^3/uL (150-450); RED BLOOD COUNT 4.77 10^6/uL (4.00-5.40)
[2023-07-12 20:05] LABS: ALBUMIN 3.9 G/DL (3.2-5.2); BILIRUBIN,TOTAL 0.2 MG/DL (0.3-1.2); CALCIUM LEVEL 9.1 MG/DL (8.3-10.6); CREATININE FOR GFR 1.15 MG/DL (0.55-1.30); POTASSIUM SERUM 4.5 MMOL/L (3.5-5.1); TOTAL PROTEIN 6.9 G/DL (5.7-8.2)
[2023-07-13 12:15] LABS: WHITE BLOOD COUNT 6.5 10^3/uL (4.0-10.0)
== END ==
LOC: M LAB REF 18:55
PROVIDERS: ATTEND Physician Assistant
DX: R10.32 Left lower quadrant pain (principal)

== ENCOUNTER 2023-08-29 08:49 | Day surgery (SDC) | payer MEDICARE ==
[~2023-08-29] VITALS: Ht 170.2 cm; Wt 83.8 kg
[~2023-08-29 08:49] MED LIST changes: +AMLO-605 PO; +ELIQ2.5T PO; -MIRA1POW3 PO; +MIRA33506 PO
[2023-08-29] MEDS: NS 1,000 ML IV ONE (09:34)
[2023-08-29] MEDS ORDERED: propofoL 200 MG/20 ML VIAL As Ordered ONE (09:52)
[2023-08-29] MEDS ORDERED: LIDOCAINE 2% 100MG/5ML SDV (FOR ANES.) As Ordered ONE (09:52)
[2023-08-29] MEDS ORDERED: ePHEDrine SULFATE 25 MG/5 ML(5MG/ML) SYRINGE As Ordered ONE (10:34)
[2023-08-29 10:56] VITALS: TEMP 96
[2023-08-29 11:13] VITALS: BP 110/61; O2SAT 99
== END 2023-08-29 11:30 | disposition home or self-care (01) ==
LOC: M OPP 08:49
PROVIDERS: ATTEND Internal Medicine Gastroenterology
DX: K64.8 Other hemorrhoids (principal); K64.4 Residual hemorrhoidal skin tags; K57.30 Diverticulosis of large intestine without perforation or abscess without bleeding; K56.699 Other intestinal obstruction unspecified as to partial versus complete obstruction; R93.3 Abnormal findings on diagnostic imaging of other parts of digestive tract; Z53.8 Procedure and treatment not carried out for other reasons; Z79.01 Long term (current) use of anticoagulants; Z79.02 Long term (current) use of antithrombotics/antiplatelets; Z79.621 Long term (current) use of calcineurin inhibitor; Z79.82 Long term (current) use of aspirin; Z79.83 Long term (current) use of bisphosphonates; Z79.890 Hormone replacement therapy; Z79.891 Long term (current) use of opiate analgesic; Z79.899 Other long term (current) drug therapy; Z88.0 Allergy status to penicillin; Z88.1 Allergy status to other antibiotic agents

== ENCOUNTER → 2023-11-22 | Outpatient (REF) | payer MEDICARE ==
[~2023-11-22] MED LIST changes: +ONDA-282 PO; -ONDA4TAB6 PO
[2023-11-22 12:38] LABS: HEMATOCRIT 37.1 % (36.0-47.0); HEMOGLOBIN 11.5 g/dl (12.0-15.5); MEAN CORPUSCULAR HEMOGLOBIN 29.6 pg (27.0-33.0); MEAN CORPUSCULAR VOLUME 95.6 fl (80.0-96.0); PLATELET COUNT, AUTOMATED 199 10^3/uL (150-450); RED BLOOD COUNT 3.88 10^6/uL (4.00-5.40); WHITE BLOOD COUNT 5.4 10^3/uL (4.0-10.0)
[2023-11-22 12:58] LABS: HEMOGLOBIN A1c 4.8 % (4.0-6.0)
[2023-11-22 13:19] LABS: ALBUMIN 3.7 G/DL (3.2-5.2); ALKALINE PHOSPHATASE 90 U/L (46-116); ALT/SGPT 10 U/L (7.0-40); AST/SGOT < 8 U/L (<34); BILIRUBIN,TOTAL 0.3 MG/DL (0.3-1.2); BLOOD UREA NITROGEN 20 MG/DL (9-23); CALCIUM LEVEL 9.4 MG/DL (8.3-10.6); CARBON DIOXIDE LEVEL 29 MMOL/L (20-31); CHLORIDE LEVEL 107 MMOL/L (98-107); CREATININE FOR GFR 1.07 MG/DL (0.55-1.30); GLOMERULAR FILTRATION RATE 53.2 (>39); GLUCOSE, FASTING 103 MG/DL (74-106); POTASSIUM SERUM 4.9 MMOL/L (3.5-5.1); SODIUM LEVEL 143 MMOL/L (136-145); TOTAL PROTEIN 6.6 G/DL (5.7-8.2)
== END ==
LOC: M LABWUC 11:36
PROVIDERS: ATTEND Surgery
DX: K57.20 Diverticulitis of large intestine with perforation and abscess without bleeding (principal); K56.699 Other intestinal obstruction unspecified as to partial versus complete obstruction; Z79.899 Other long term (current) drug therapy

== ENCOUNTER 2024-03-27 13:11 | Emergency (ER) | payer MEDICARE ==
[~2024-03-27] VITALS: Ht 170.2 cm; Wt 88.2 kg
[~2024-03-27 13:11] MED LIST changes: -SENN-111 PO; +SENN-165 PO
[2024-03-27 14:43] VITALS: BP 134/63; TEMP 97; O2SAT 96
== END 2024-03-27 14:45 | disposition home or self-care (01) ==
LOC: M ED 13:11
DX: R60.9 Edema, unspecified (principal); I10 Essential (primary) hypertension; K57.92 Diverticulitis of intestine, part unspecified, without perforation or abscess without bleeding; Z86.711 Personal history of pulmonary embolism; Z90.49 Acquired absence of other specified parts of digestive tract; Z79.01 Long term (current) use of anticoagulants; Z79.899 Other long term (current) drug therapy

== ENCOUNTER → 2024-05-08 | Outpatient (REF) | payer MEDICARE ==
[2024-05-08 17:46] LABS: CLOSTRIDIUM DIFFICILE PCR NEGATIVE (NEGATIVE)
== END ==
LOC: M LAB REF 16:37
PROVIDERS: ATTEND Surgery
DX: R19.7 Diarrhea, unspecified (principal)

== ENCOUNTER → 2024-05-15 | Outpatient (CLI) | payer MEDICARE ==
[~2024-05-15] MED LIST changes: +GASTROGRAFIN SOLUTION 30ML ONE
== END ==
LOC: M PLAIMG 12:38
PROVIDERS: ATTEND Surgery
DX: K56.699 Other intestinal obstruction unspecified as to partial versus complete obstruction (principal); D25.9 Leiomyoma of uterus, unspecified
CPT/HCPCS: 74176; Q9963

== ENCOUNTER → 2024-06-20 | Outpatient (REF) | payer MEDICARE ==
[~2024-06-20] MED LIST changes: -GASTROGRAFIN SOLUTION 30ML ONE
[2024-06-20 18:29] LABS: PERCENT SATURATION 5.4 % (13.2-45.0)
[2024-06-20 18:32] LABS: FERRITIN 6.8 NG/ML (7.3-270.7)
== END ==
LOC: M LAB REF 18:08
PROVIDERS: ATTEND Internal Medicine Nephrology
DX: N18.9 Chronic kidney disease, unspecified (principal); D63.1 Anemia in chronic kidney disease

== ENCOUNTER 2024-07-24 09:23 | Outpatient (CLI) | payer MEDICARE ==
[~2024-07-24] VITALS: Ht 170.2 cm; Wt 84.0 kg
[~2024-07-24 09:23] MED LIST changes: +ALBUTEROL SULFATE 2.5MG/0.5ML INH NEB SOLN INH PRN; +EPINEPHrine INJ 1 MG/ML 1ML AMP IM PRN; +NS (Normal Saline) 0.9% 1,000 ML IV SCH; +diphenhydrAMINE 50MG/ML VIAL IV PRN; +methylPREDNISolone 125MG 2ML VIAL IV PRN
[2024-07-24 10:34] VITALS: BP 126/58; O2SAT 97
[2024-07-24] MEDS: IRON SUCROSE 300 MG in NS 250 ML IV ONE (10:42)
[2024-07-24 12:50] VITALS: BP 133/65; O2SAT 98
== END 2024-07-24 12:55 ==
LOC: M INFU 09:23
PROVIDERS: ATTEND Internal Medicine Nephrology
DX: E61.1 Iron deficiency (principal); Z88.0 Allergy status to penicillin; Z88.1 Allergy status to other antibiotic agents
CPT/HCPCS: 96365; 96366; J1756

== ENCOUNTER 2024-07-31 10:30 | Outpatient (CLI) | payer MEDICARE ==
[~2024-07-31] VITALS: Ht 170.2 cm; Wt 84.1 kg
[~2024-07-31 10:30] MED LIST changes: -NS (Normal Saline) 0.9% 1,000 ML IV SCH
[2024-07-31 10:40] VITALS: BP 122/84; O2SAT 98
[2024-07-31] MEDS: IRON SUCROSE 300 MG in NS 250 ML IV ONE (11:14)
[2024-07-31 12:55] VITALS: BP 148/76; O2SAT 100
== END 2024-07-31 13:00 ==
LOC: M INFU 10:30
PROVIDERS: ATTEND Internal Medicine Nephrology
DX: E61.1 Iron deficiency (principal); Z88.0 Allergy status to penicillin
CPT/HCPCS: 96365; 96366; J1756

== ENCOUNTER 2024-08-07 11:55 | Outpatient (CLI) | payer MEDICARE ==
[~2024-08-07] VITALS: Ht 170.2 cm; Wt 84.0 kg
[2024-08-07 12:00] VITALS: BP 140/64; O2SAT 98
[2024-08-07] MEDS: IRON SUCROSE 300 MG in NS 250 ML OVER 90 MIN. IV ONE (12:26)
[2024-08-07 14:00] VITALS: BP 142/67; O2SAT 98
== END 2024-08-07 14:00 ==
LOC: M INFU 11:55
PROVIDERS: ATTEND Internal Medicine Nephrology
DX: E61.1 Iron deficiency (principal); Z88.0 Allergy status to penicillin; Z88.1 Allergy status to other antibiotic agents
CPT/HCPCS: 96365; J1756

== ENCOUNTER → 2024-08-12 | Outpatient (CLI) | payer MEDICARE ==
[~2024-08-12] MED LIST changes: -ALBUTEROL SULFATE 2.5MG/0.5ML INH NEB SOLN INH PRN; -EPINEPHrine INJ 1 MG/ML 1ML AMP IM PRN; -diphenhydrAMINE 50MG/ML VIAL IV PRN; -methylPREDNISolone 125MG 2ML VIAL IV PRN
== END ==
LOC: M WHC 13:40
PROVIDERS: ATTEND Obstetrics & Gynecology
DX: Z12.31 Encounter for screening mammogram for malignant neoplasm of breast (principal)

== ENCOUNTER → 2024-08-16 | Outpatient (CLI) | payer MEDICARE ==
[2024-08-16 19:52] LABS: HEMATOCRIT 41.8 % (36.0-47.0); HEMOGLOBIN 12.4 g/dl (12.0-15.5); MEAN CORPUSCULAR HEMOGLOBIN 25.7 pg (27.0-33.0); MEAN CORPUSCULAR HGB CONC 29.7 g/dl (32.0-36.5); MEAN CORPUSCULAR VOLUME 86.7 fl (80.0-96.0); PLATELET COUNT, AUTOMATED 174 10^3/uL (150-450); RED BLOOD COUNT 4.82 10^6/uL (4.00-5.40); WHITE BLOOD COUNT 4.8 10^3/uL (4.0-10.0)
[2024-08-16 20:13] LABS: ALBUMIN 4.1 G/DL (3.2-5.2); BILIRUBIN,TOTAL 0.4 MG/DL (0.3-1.2); CALCIUM LEVEL 9.1 MG/DL (8.3-10.6); CHOLESTEROL RISK RATIO 2.8 (<5); CREATININE FOR GFR 1.12 MG/DL (0.55-1.30); GLOMERULAR FILTRATION RATE 50.4 (>39); LDL CHOLESTEROL 82.8 MG/DL (<100); POTASSIUM SERUM 4.5 MMOL/L (3.5-5.1); TOTAL PROTEIN 7.1 G/DL (5.7-8.2)
[2024-08-16 20:15] LABS: THYROID STIMULATING HORMONE 1.634 uIU/ML (0.55-4.78)
== END ==
LOC: M WUC 11:21
PROVIDERS: ATTEND Physician Assistant
DX: I10 Essential (primary) hypertension (principal); E03.9 Hypothyroidism, unspecified; Z79.01 Long term (current) use of anticoagulants; E78.2 Mixed hyperlipidemia

== ENCOUNTER 2025-02-23 11:08 | Emergency (ER) | payer MEDICARE ==
[~2025-02-23] VITALS: Ht 167.6 cm; Wt 88.4 kg
[~2025-02-23 11:08] MED LIST changes: -COLC0.6T47 PO; +COLC0.6T53 PO; -ZOLP5TAB PO; +ZOLP5TAB9 PO
[2025-02-23] MEDS: ACETAMINOPHEN *IV* 1,000 MG in IV 1 EA IV ONE ×2 (13:03→20:04)
[2025-02-23] MEDS: METHOCARBAMOL 1,000 MG/10 ML VIAL IV ONE (13:03)
[2025-02-23 13:28] LABS: PLATELET COUNT, AUTOMATED 189 10^3/uL (150-450)
[2025-02-23] MEDS ORDERED: ISOVUE-370 76% 100 ML VIAL As Ordered ONE (13:31)
[2025-02-23 13:41] LABS: INR 1.22
[2025-02-23] MEDS ORDERED: PROHANCE 279.3MG/ML 15ML VIAL As Ordered ONE (17:17)
[2025-02-23] MEDS ORDERED: PROHANCE 279.3MG/ML 5ML VIAL As Ordered ONE (17:17)
[2025-02-23 21:06] VITALS: BP 117/69; TEMP 97.1; O2SAT 100
[2025-02-23] MEDS: OXYCODONE/APAP 5MG/325MG(HOME DOSE PACK) PO ONE (21:13)
== END 2025-02-23 21:16 | disposition home or self-care (01) ==
LOC: M ED 11:08
DX: M54.50 Low back pain, unspecified (principal); I10 Essential (primary) hypertension; E03.9 Hypothyroidism, unspecified; Z79.01 Long term (current) use of anticoagulants; Z88.0 Allergy status to penicillin; Z88.1 Allergy status to other antibiotic agents; Z79.82 Long term (current) use of aspirin; Z79.83 Long term (current) use of bisphosphonates; Z79.899 Other long term (current) drug therapy
CPT/HCPCS: 72132; 72158; 74177; 80047; 85027; 85610; 85652; 85730; 86140; 96374; 96375; 99284; A9576; J0131; J2800; Q9967

== ENCOUNTER → 2025-03-20 | Outpatient (CLI) | payer MEDICARE | LOC: M WUC 13:42 | PROVIDERS: ATTEND Internal Medicine | DX: M10.9 Gout, unspecified (principal) ==

== ENCOUNTER 2025-04-05 12:32 | Emergency (ER) | payer MEDICARE ==
[~2025-04-05] VITALS: Ht 167.6 cm; Wt 83.2 kg
[2025-04-05 12:36] VITALS: TEMP 97
[2025-04-05 13:12] LABS: BASO # 0.0 10^3/uL (0.0-0.2); BASO % 0.1 % (0.0-1.0); EOS # 0.4 10^3/uL (0.0-0.5); EOS % 4.6 % (0.0-3.0); LYMPH # 1.2 10^3/uL (1.5-5.0); LYMPH % 15.0 % (24.0-44.0); MONO # 0.6 10^3/uL (0.0-0.8); MONO % 6.9 % (2.0-8.0); NEUTROPHILS # 5.8 10^3/uL (1.5-8.5); NEUTROPHILS % 73.0 % (36.0-66.0); PLATELET COUNT, AUTOMATED 197 10^3/uL (150-450)
[2025-04-05 13:43] LABS: ALT/SGPT 18.0 U/L (7.0-40); AST/SGOT 17.0 U/L (<34); CALCIUM LEVEL 8.7 MG/DL (8.3-10.6); CARBON DIOXIDE LEVEL 24.0 MMOL/L (20-31); CHLORIDE LEVEL 106.0 MMOL/L (98-107); CREATININE FOR GFR 1.33 MG/DL (0.55-1.30); GLOMERULAR FILTRATION RATE 41.2 (>39); POTASSIUM SERUM 4.2 MMOL/L (3.5-5.1); SODIUM LEVEL 140.0 MMOL/L (136-145)
[2025-04-05] MEDS: NS (Normal Saline) 0.9% 1,000 ML IV ONE (15:53)
[2025-04-05] MEDS ORDERED: ISOVUE-370 76% 100 ML VIAL As Ordered ONE (16:30)
[2025-04-05 16:46] LABS: CK-MB VALUE MASS 2.0 NG/ML (<3.6)
[2025-04-05 16:47] LABS: CPK CREATINE PHOSPHOKINASE 69.0 U/L (34-145); MB/CK RELATIVE INDEX 2.89 (< OR =4)
[2025-04-05] MEDS: ONDANSETRON 4MG/2ML VIAL IV ONE (16:52)
[2025-04-05] MEDS: ACETAMINOPHEN *IV* 1,000 MG in IV 1 EA IV ONE (16:53)
[2025-04-05] MEDS ORDERED: ONDA-282 PO (18:17)
[2025-04-05 18:30] VITALS: BP 99/60; O2SAT 96
[2025-04-05] MEDS: ONDANSETRON 4MG TAB PO ONE (18:35)
== END 2025-04-05 19:02 | disposition home or self-care (01) ==
LOC: M ED 12:32
DX: R11.10 Vomiting, unspecified (principal); R19.7 Diarrhea, unspecified; R22.31 Localized swelling, mass and lump, right upper limb; M85.841 Other specified disorders of bone density and structure, right hand; K57.30 Diverticulosis of large intestine without perforation or abscess without bleeding; D25.9 Leiomyoma of uterus, unspecified; I71.23 Aneurysm of the descending thoracic aorta, without rupture; Z79.01 Long term (current) use of anticoagulants; Z79.899 Other long term (current) drug therapy; Z88.0 Allergy status to penicillin; Z88.1 Allergy status to other antibiotic agents; R06.02 Shortness of breath
CPT/HCPCS: 71275; 73130; 74177; 80053; 82248; 82550; 82553; 83690; 83880; 84484; 84550; 85025; 87486; 87581; 87633; 87798; 93005; 96361; 96365; 96375; 99284; J0131; J2405; Q9967

== ENCOUNTER 2025-04-17 03:06 | Emergency (ER) | payer MEDICARE ==
[~2025-04-17] VITALS: Ht 167.6 cm; Wt 83.2 kg
[2025-04-17] MEDS: NS (Normal Saline) 0.9% 1,000 ML IV ONE (03:55)
[2025-04-17 04:03] LABS: BASO # 0.1 10^3/uL (0.0-0.2); BASO % 0.8 % (0.0-1.0); EOS # 0.7 10^3/uL (0.0-0.5); EOS % 10.9 % (0.0-3.0); LYMPH # 1.7 10^3/uL (1.5-5.0); LYMPH % 28.1 % (24.0-44.0); MONO # 0.4 10^3/uL (0.0-0.8); MONO % 5.7 % (2.0-8.0); NEUTROPHILS # 3.3 10^3/uL (1.5-8.5); NEUTROPHILS % 54.2 % (36.0-66.0); PLATELET COUNT, AUTOMATED 278 10^3/uL (150-450)
[2025-04-17] MEDS: ONDANSETRON 4MG/2ML VIAL IV ONE (04:13)
[2025-04-17] MEDS: ACETAMINOPHEN *IV* 1,000 MG in IV 1 EA IV ONE (04:13)
[2025-04-17 04:18] LABS: CK-MB VALUE MASS 1.6 NG/ML (<3.6)
[2025-04-17 04:20] LABS: ALT/SGPT 18 U/L (7.0-40); AST/SGOT 22 U/L (<34); CALCIUM LEVEL 9.0 MG/DL (8.3-10.6); CARBON DIOXIDE LEVEL 25 MMOL/L (20-31); CHLORIDE LEVEL 106 MMOL/L (98-107); CREATININE FOR GFR 1.02 MG/DL (0.55-1.30); GLOMERULAR FILTRATION RATE 56.7 (>39); POTASSIUM SERUM 4.6 MMOL/L (3.5-5.1); SODIUM LEVEL 143 MMOL/L (136-145)
[2025-04-17 04:21] LABS: CPK CREATINE PHOSPHOKINASE 62 U/L (34-145); MB/CK RELATIVE INDEX 2.58 (< OR =4)
[2025-04-17] MEDS: KETOROLAC 30 MG/ML 1 ML VIAL IV ONE (04:24)
[2025-04-17 04:40] LABS: KETONE, URINE AUTO RFX NEGATIVE (NEGATIVE); LEUKOCYTE ESTERASE UR AUTO RFX 2+ (NEGATIVE); MUCUS, URINE RFX SMALL (NEGATIVE); NITRITE, URINE AUTO RFX NEGATIVE (NEGATIVE); RBC, URINE AUTO RFX 6 /HPF (0-3); SQUAM EPITHELIAL CELL UR AURFX 0 /HPF (0-6); WBC, URINE AUTO RFX 119 /HPF (0-3)
[2025-04-17] MEDS: cefTRIAXone SOD 1 GM in DEXTROSE 5% (D5W) ADV/MINI-BAG 50 ML IV ONE (06:40)
[2025-04-17 06:54] LABS: CK-MB VALUE MASS < 1.0 NG/ML (<3.6)
[2025-04-17 07:10] LABS: CPK CREATINE PHOSPHOKINASE 53 U/L (34-145)
[2025-04-17] MEDS: OXYCODONE/APAP 5MG/325MG(HOME DOSE PACK) PO ONE (07:10)
[2025-04-17] MEDS ORDERED: CYCL5TAB4 PO (07:12)
[2025-04-17] MEDS ORDERED: PERC5TAB12 PO (07:12)
[2025-04-17] MEDS ORDERED: CEFD1CAP9 PO (07:12)
[2025-04-17 07:45] VITALS: BP 101/64; TEMP 97; O2SAT 96
== END 2025-04-17 07:55 | disposition home or self-care (01) ==
LOC: M ED 03:06
DX: N10 Acute pyelonephritis (principal); I10 Essential (primary) hypertension; E03.9 Hypothyroidism, unspecified; Z86.711 Personal history of pulmonary embolism; K59.00 Constipation, unspecified; Z98.0 Intestinal bypass and anastomosis status; Z79.01 Long term (current) use of anticoagulants; Z79.899 Other long term (current) drug therapy; Z88.0 Allergy status to penicillin; Z88.1 Allergy status to other antibiotic agents
CPT/HCPCS: 74176; 80048; 80076; 81001; 82550; 82553; 83605; 83690; 84484; 85025; 87088; 87186; 93005; 93041; 96365; 96375; 99285; J0134; J0696; J1885; J2060; J2405

== ENCOUNTER 2025-04-23 13:33 | Emergency (ER) | payer MEDICARE ==
[~2025-04-23] VITALS: Ht 167.6 cm; Wt 83.2 kg
[~2025-04-23 13:33] MED LIST changes: +CEFD1CAP9 PO; +CYCL5TAB4 PO; +PERC5TAB12 PO
[2025-04-23 17:26] LABS: KETONE, URINE AUTO RFX NEGATIVE (NEGATIVE); LEUKOCYTE ESTERASE UR AUTO RFX NEGATIVE (NEGATIVE); NITRITE, URINE AUTO RFX NEGATIVE (NEGATIVE); RBC, URINE AUTO RFX 0 /HPF (0-3); SQUAM EPITHELIAL CELL UR AURFX 0 /HPF (0-6); WBC, URINE AUTO RFX 1 /HPF (0-3)
[2025-04-23 17:39] LABS: BASO # 0.0 10^3/uL (0.0-0.2); BASO % 0.7 % (0.0-1.0); EOS # 0.3 10^3/uL (0.0-0.5); EOS % 6.8 % (0.0-3.0); LYMPH # 1.5 10^3/uL (1.5-5.0); LYMPH % 35.5 % (24.0-44.0); MONO # 0.3 10^3/uL (0.0-0.8); MONO % 6.6 % (2.0-8.0); NEUTROPHILS # 2.0 10^3/uL (1.5-8.5); NEUTROPHILS % 49.9 % (36.0-66.0); PLATELET COUNT, AUTOMATED 247 10^3/uL (150-450)
[2025-04-23 18:12] LABS: ALT/SGPT 14 U/L (7.0-40); AST/SGOT 24 U/L (<34)
[2025-04-23] MEDS: LIDOCAINE 5% PATCH TD ONE (19:28)
[2025-04-23] MEDS: METHOCARBAMOL 1,000 MG/10 ML VIAL IV ONE (19:28)
[2025-04-23] MEDS: ACETAMINOPHEN *IV* 1,000 MG in IV 1 EA IV ONE (19:52)
[2025-04-23 21:00] VITALS: BP 125/72; TEMP 98.1; O2SAT 96
[2025-04-23] MEDS ORDERED: MEDR4PAK PO (21:09)
== END 2025-04-23 21:31 | disposition home or self-care (01) ==
LOC: M ED 13:33
DX: M54.50 Low back pain, unspecified (principal); Z79.01 Long term (current) use of anticoagulants; Z79.899 Other long term (current) drug therapy; Z88.0 Allergy status to penicillin
CPT/HCPCS: 71045; 80047; 80076; 81001; 83690; 83880; 85025; 93005; 93971; 96374; 96375; 99285; J0134; J2800

== ENCOUNTER → 2025-05-30 | Outpatient (CLI) | payer MEDICARE ==
[~2025-05-30] MED LIST changes: +GADOXETATE DISODIUM 2.5 MMOL/10 ML VIAL ONE; +MEDR4PAK PO
== END ==
LOC: M PLAIMG 08:26
PROVIDERS: ATTEND Internal Medicine Gastroenterology
DX: R93.3 Abnormal findings on diagnostic imaging of other parts of digestive tract (principal)
CPT/HCPCS: 74183; A9581